=== PATIENT | male | born 1945 | race Caucasian/White ===

== ENCOUNTER → 2018-07-18 | Day surgery (SDC) | payer MEDICARE | LOC: ENDO/OP 09:43 | PROVIDERS: ATTEND Internal Medicine Gastroenterology | DX: K21.9 Gastro-esophageal reflux disease without esophagitis (principal); M19.90 Unspecified osteoarthritis, unspecified site; I48.91 Unspecified atrial fibrillation; I25.10 Atherosclerotic heart disease of native coronary artery without angina pectoris; M10.9 Gout, unspecified; I25.2 Old myocardial infarction; N18.9 Chronic kidney disease, unspecified; I50.9 Heart failure, unspecified; K50.90 Crohn's disease, unspecified, without complications; Z79.899 Other long term (current) drug therapy; Z87.891 Personal history of nicotine dependence; Z95.810 Presence of automatic (implantable) cardiac defibrillator | CPT/HCPCS: 91034 ==

== ENCOUNTER 2018-11-18 12:47 | Outpatient (CLI) | payer MEDICARE ==
--- NOTE | 2018-11-18 13:28 | CT ---
CT abdomen and pelvis noncontrast HISTORY: Hematuria. Neurogenic bladder. FINDINGS: At least a moderate amount right pleural fluid is partially visualized. Atelectasis at each lung base. Each renal collecting system, ureter, and urinary bladder are decompressed without stone evident. Lack of contrast limits evaluation for other abnormalities. Large cortical cysts arise from the cortex of each kidney. On each side, they measure 2 4.4 cm greatest diameter. Small amount of free fluid throughout the abdomen and pelvis with peritoneal dialysis catheter in place. Pr ominent calcification throughout the arterial structures. No evidence of bowel obstruction. Small dystrophic calcification is apparent the superior pole of the left renal cortex. Reactive appearing l ymph nodes scattered throughout the abdomen, measuring up to 1.9 cm length. IMPRESSION: No CT evidence of urinary tract obstruction or calcification. Findings of chronic peritoneal dialysis. Right pleural effusion, partially visualized. Atherosclerosis.
== END 2018-11-18 12:48 | disposition home or self-care (01) ==
LOC: BICCT 12:47
PROVIDERS: ATTEND Urology
DX: R31.29 Other microscopic hematuria (principal); N31.9 Neuromuscular dysfunction of bladder, unspecified; J90 Pleural effusion, not elsewhere classified; I70.90 Unspecified atherosclerosis
CPT/HCPCS: 74176

== ENCOUNTER 2019-09-15 13:59 | Emergency (ER) | payer MEDICARE ==
[2019-09-15 14:43] LABS: #Basophils 0.1 thou/uL (0.0-0.2); #Eosinphils 0.3 thou/uL (0.0-0.7); #Lymphocytes 0.9 thou/uL (1.20-3.40); #Monocytes 1.5 thou/uL (0.11-0.59); #Neutrophils 7.5 thou/uL (1.40-6.50); %Basophils 0.8 % (0.0-1.0); %Eosinophils 2.5 % (0.0-10.0); %Lymphocytes 8.9 % (21.0-51.0); %Monocytes 14.6 % (0.0-10.0); %Neutrophils 73.3 % (42.0-75.0); Hemoglobin 12.5 g/dL (14.0-18.0); Mean Corpuscular HGB CONC 33.8 g/dL (32.0-36.0); Mean Corpuscular Hemoglobin 38.2 pg (27.0-31.0); Mean Platelet Volume 7.9 fL (7.4-10.4); Platelet Count 224 thou/uL (130-400); RBC Distribution Width 14.4 % (11.5-14.5); Red Blood Cell (RBC) Count 3.26 mill/uL (4.70-6.10); White Blood Cell (WBC) Count 10.2 thou/uL (4.8-10.8)
--- NOTE | 2019-09-15 14:46 | RAD ---
PORTABLE CHEST 1 VIEW: DATE: 09/15/2019. TIME: 2:33 PM. HISTORY: Weakness. FINDINGS/IMPRESSION: There are changes of median sternotomy. The heart size is enlarged. The aorta is tortuous. A left- sided pacing device is present. There is a small right pleural effusion. No lobar consolidation, pn eumothorax, renée pulmonary edema, or left pleural effusion is seen. POS: OFF
[2019-09-15 14:54] LABS: ALT (SGPT) 21 U/L (8-55); AST (SGOT) 35 U/L (5-34); Albumin 4.1 g/dL (3.4-4.8); Alkaline Phosphatase 184 U/L (40-110); Anion Gap 21 mmol/L (10-20); BUN (Urea Nitrogen) 40 mg/dL (8.4-25.7); Bilirubin, Total 0.7 mg/dL (0.2-1.2); Calc. Creatinine Clearance 0 mL/min (70-130); Calcium 9.6 mg/dL (7.8-10.44); Carbon Dioxide 25 mmol/L (23-31); Chloride 96 mmol/L (98-107); Estimated GFR-MDRD 5; Globulin 2.5 g/dL (2.4-3.5); Glucose 115 mg/dL (83-110); Magnesium 2.3 mg/dL (1.6-2.6); Potassium 3.9 mmol/L (3.5-5.1); Protein, Total 6.6 g/dL (5.8-8.1); Sodium 138 mmol/L (136-145)
[2019-09-15 15:03] LABS: MDiff Complete? YES; Macrocytosis MODERATE=16-30 cells (100X) (0-5/hpf); Ovalocytes SLIGHT = 2-5 cells (100X) (0-1/hpf); Platelet Morphology Comment Appears Adequate; Polychromasia SLIGHT = 2-3 cells (100X) (0-2/hpf); Target Cells SLIGHT = 2-5 cells (100X) (0-1/hpf); Tear Drops SLIGHT = 2-5 cells (100X) (0-1/hpf)
[2019-09-15 15:15] LABS: CKMB 3.9 ng/mL (0-6.6)
== END 2019-09-15 16:19 | disposition home or self-care (01) ==
LOC: ERS 13:59
DX: I95.9 Hypotension, unspecified (principal); R53.1 Weakness; N18.4 Chronic kidney disease, stage 4 (severe); I50.9 Heart failure, unspecified; M10.9 Gout, unspecified; K58.9 Irritable bowel syndrome, unspecified; Z79.899 Other long term (current) drug therapy
CPT/HCPCS: 36415; 71045; 80053; 82553; 83735; 84484; 85025; 93005; 96360; 96361

== ENCOUNTER 2020-07-11 16:51 | Inpatient (IN) | payer MEDICARE ==
[2020-07-11 19:14] LABS: Hemoglobin 13.2 g/dL (14.0-18.0); Mean Corpuscular HGB CONC 31.3 g/dL (32.0-36.0); Mean Corpuscular Hemoglobin 33.3 pg (27.0-31.0); Mean Platelet Volume 8.1 fL (7.4-10.4); Platelet Count 208 thou/uL (130-400); RBC Distribution Width 14.4 % (11.5-14.5); Red Blood Cell (RBC) Count 3.98 mill/uL (4.70-6.10); White Blood Cell (WBC) Count 7.8 thou/uL (4.8-10.8)
[2020-07-11 19:31] LABS: ALT (SGPT) 19 U/L (8-55); AST (SGOT) 40 U/L (5-34); Albumin 3.5 g/dL (3.4-4.8); Alkaline Phosphatase 211 U/L (40-110); Anion Gap 20 mmol/L (10-20); BUN (Urea Nitrogen) 36 mg/dL (8.4-25.7); Bilirubin, Total 0.7 mg/dL (0.2-1.2); Calc. Creatinine Clearance 0 mL/min (70-130); Calcium 9.4 mg/dL (7.8-10.44); Carbon Dioxide 28 mmol/L (23-31); Chloride 89 mmol/L (98-107); Globulin 3.5 g/dL (2.4-3.5); Glucose 110 mg/dL (83-110); Potassium 3.4 mmol/L (3.5-5.1); Sodium 134 mmol/L (136-145)
[2020-07-11 19:38] LABS: Band 2 % (5-11); Lymphocytes 17 % (21-51); MDiff Complete? YES; Macrocytosis SLIGHT = 6-15 cells (100X) (0-5/hpf); Monocytes 17 % (0-10); Neutrophil 61 % (42-75); Platelet Morphology Comment Appears Adequate; Reactive Lymphocytes 2 % (0-10)
[2020-07-11 19:57] LABS: CKMB 2.3 ng/mL (0-6.6)
[2020-07-11] MEDS ORDERED: Aspirin Chewable 81 MG TAB ONE (20:01)
--- NOTE | 2020-07-11 20:19 | RAD ---
RADIOGRAPH CHEST 1 VIEW: DATE: 07/11/2020 TIME: 7:29 PM HISTORY: 75-year-old male with cough and generalized weakness COMPARISON: 09/15/2019 FINDINGS: Cardiomegaly. Signs of previous CABG. AICD with left-sided generator and multiple leads. No pneumothorax. Small right pleural effusion appears similar to prior study. Greater degree of haziness at right mid and lower lung zones now than previously. Mild haziness of contralateral left mid and lower lung zones. These are nonspecific, but could represent pulmonary interstitial edema or COVID-19 pneumonia. IMPRESSION: 1) cardiomegaly and small right pleural effusion, similar to prior study. 2) interstitial densities bilaterally, right greater than left. This could represent pulmonary inters titial edema of congestive heart failure or COVID-19 pneumonia.
[2020-07-11 21:47] LABS: Lactic Acid 1.7 mmol/L (0.5-2.2)
[2020-07-11] MEDS ORDERED: Cefepime 2 GM VIAL ONE (21:54)
[2020-07-11 22:42] LABS: SARS-CoV-2 NAA Rapid Test DETECTED (NotDetected)
[2020-07-12 00:08] LABS: Critical Call Chem Troponin I RESULT DECREASING; Troponin I 0.355 ng/mL (< 0.028)
[2020-07-12] MEDS ORDERED: Acetaminophen 650 MG Suppository PR PRN (00:09)
[2020-07-12] MEDS ORDERED: Ondansetron ODT 4 MG TAB PO PRN (00:09)
[2020-07-12] MEDS ORDERED: Acetaminophen 325 MG TAB PO PRN (00:09)
[2020-07-12] MEDS ORDERED: Ondansetron PF 4 MG/2 ML Vial IVP PRN (00:09)
[2020-07-12] MEDS ORDERED: Calcium Carbonate 500 MG ChewTAB PO PRN (00:09)
--- NOTE | 2020-07-12 00:14 | PDOC.HHP ---
Hospitalist HPI - History of Present Illness lethargy, weak History of Present Illness: Case of an 75y/o with a pmhx of chf, esrd on p/d, gout, atrial fibrillation, ibs, monoclonal gammopathy, hx of prostate ca s/p radiation and DM who comes to hospital due to general weakness and lethargy. patient is a very poor historian and does not understand why he is here. refers patient has been with generalize weakness and general malaise. states it started this morning and has gradually gotten worse. He denies chest pain, denies shortness of breath. He has no specific weakness, no loss of control of his arms or legs. His symptoms were low in severity have gradually gotten worse to the current state. No precipitating event or anything that caused this to his knowledge. at the ED patient was evaluated and found to be covid 19 positive and elevated troponin for which hospitalize was called for further evaluation and management. patient denies any fever but was febrile upon arrival Hospitalist ROS - Review of Systems All other systems reviewed; all pertinent +/- noted in HPI/Subj Hospitalist History - Past Surgical History Past Surgical History: reports: CABG - Family History Family History: reports: cardiac disorder - Social History Smoking Status: Never smoker Alcohol: reports: None Drugs: reports: none Living Situation: With Family - Exam General Appearance: ill appearing Eye: PERRL, anicteric sclera ENT: normocephalic atraumatic, no oropharyngeal lesions Neck: supple, symmetric, no JVD Heart: RRR, no murmur, no gallops, no rubs Respiratory: CTAB, no wheezes, no rales, no ronchi Gastrointestinal: soft, non-tender, non-distended Extremities: no cyanosis, no clubbing, 1+ LE edema Skin: normal turgor, no lesions, no rashes Neurological: cranial nerve grossly intact, normal sensation to touch Musculoskeletal: normal tone, no muscle wasting Psychiatric: normal affect, normal behavior, oriented to person Hospitalist Results - Labs Result Diagrams: 07/11/20 18:54 07/11/20 18:54 Lab results: WBC 7.8 thou/uL (4.8-10.8) 07/11/20 18:54 Hgb 13.2 g/dL (14.0-18.0) L 07/11/20 18:54 Hct 42.3 % (42.0-52.0) 07/11/20 18:54 MCV 106.0 fL (78.0-98.0) H 07/11/20 18:54 Plt Count 208 thou/uL (130-400) 07/11/20 18:54 Band Neuts % (Manual) 2 % (5-11) L 07/11/20 18:54 Sodium 134 mmol/L (136-145) L 07/11/20 18:54 Potassium 3.4 mmol/L (3.5-5.1) L 07/11/20 18:54 Chloride 89 mmol/L (98-107) L 07/11/20 18:54 Carbon Dioxide 28 mmol/L (23-31) 07/11/20 18:54 BUN 36 mg/dL (8.4-25.7) H 07/11/20 18:54 Creatinine 9.98 mg/dL (0.7-1.3) H 07/11/20 18:54 Glucose 110 mg/dL (83-110) 07/11/20 18:54 Lactic Acid 1.7 mmol/L (0.5-2.2) 07/11/20 21:07 Calcium 9.4 mg/dL (7.8-10.44) 07/11/20 18:54 Total Bilirubin 0.7 mg/dL (0.2-1.2) 07/11/20 18:54 AST 40 U/L (5-34) H 07/11/20 18:54 ALT 19 U/L (8-55) 07/11/20 18:54 Alkaline Phosphatase 211 U/L (40-110) H 07/11/20 18:54 CK-MB (CK-2) 2.3 ng/mL (0-6.6) 07/11/20 18:54 Troponin I 0.355 ng/mL (< 0.028) H* 07/11/20 23:10 B-Natriuretic Peptide 88.9 pg/mL (0-100) 07/11/20 18:54 Serum Total Protein 7.0 g/dL (5.8-8.1) 07/11/20 18:54 Albumin 3.5 g/dL (3.4-4.8) 07/11/20 18:54 Hospitalist H&P A/P - Problem (1) COVID-19 Code(s): U07.1 - COVID-19 Status: Acute (2) ESRD on peritoneal dialysis Code(s): N18.6 - END STAGE RENAL DISEASE; Z99.2 - DEPENDENCE ON RENAL DIALYSIS Status: Acute (3) CAD (coronary artery disease) Code(s): I25.10 - ATHSCL HEART DISEASE OF [place] CORONARY ARTERY W/O ANG PCTRS Status: Acute (4) History of prostate cancer Code(s): Z85.46 - PERSONAL HISTORY OF MALIGNANT NEOPLASM OF PROSTATE Status: Acute (5) Diabetes Code(s): E11.9 - TYPE 2 DIABETES MELLITUS WITHOUT COMPLICATIONS Status: Acute (6) Elevated troponin Code(s): R77.8 - OTHER SPECIFIED ABNORMALITIES OF PLASMA PROTEINS Status: Acute - Plan Plan: Case of an 75y/o male who presents to hospital and was diagnosed with covid 19 covid 19 - positive test - cxr consistent with covid 19 - will hold steroid for now since there is no complains of sob and adequate saturations - will start vit c, vit d and zinc - isolation precautions - elevated LA given iv bolus of boluses with improved levels - 02 supplementation if needed DM - acc+ss elevated troponin - likely secondary to renal failure and infection - will trend - telemetry monitoring esrd on PD - continue w P/D - nephrology consulted cad - continue home meds
[2020-07-12 00:21] VITALS: BMI 23.4
[2020-07-12 02:14] LABS: Critical Call Chem Troponin I RESULT DECREASING; Troponin I 0.325 ng/mL (< 0.028)
[2020-07-12 06:11] LABS: Band 2 % (5-11); Eosinophils 1 % (0-10); Hemoglobin 12.6 g/dL (14.0-18.0); Lymphocytes 5 % (21-51); MDiff Complete? YES; Mean Corpuscular HGB CONC 32.1 g/dL (32.0-36.0); Mean Corpuscular Hemoglobin 34.2 pg (27.0-31.0); Mean Platelet Volume 7.8 fL (7.4-10.4); Monocytes 17 % (0-10); Neutrophil 74 % (42-75); Platelet Count 194 thou/uL (130-400); Platelet Morphology Comment Appears Adequate; RBC Distribution Width 14.5 % (11.5-14.5); Reactive Lymphocytes 1 % (0-10); White Blood Cell (WBC) Count 5.8 thou/uL (4.8-10.8)
[2020-07-12 06:41] LABS: ALT (SGPT) 19 U/L (8-55); AST (SGOT) 53 U/L (5-34); Alkaline Phosphatase 173 U/L (40-110); Anion Gap 23 mmol/L (10-20); BUN (Urea Nitrogen) 43 mg/dL (8.4-25.7); Bilirubin, Total 0.7 mg/dL (0.2-1.2); Calc. Creatinine Clearance 7 mL/min (70-130); Calcium 8.7 mg/dL (7.8-10.44); Carbon Dioxide 19 mmol/L (23-31); Chloride 94 mmol/L (98-107); Globulin 3.6 g/dL (2.4-3.5); Glucose 66 mg/dL (83-110); Potassium 4.7 mmol/L (3.5-5.1); Protein, Total 6.6 g/dL (5.8-8.1); Sodium 131 mmol/L (136-145)
[2020-07-12] MEDS ORDERED: Albumin 25% 25 GM/100 ML BOT IVPB SCH (08:25)
[2020-07-12] MEDS: Enoxaparin Sodium 30 MG/0.3 ML SYRINGE SC SCH (08:57)
[2020-07-12] MEDS: Zinc Sulfate 220 MG CAP PO SCH (08:57)
[2020-07-12] MEDS: Ascorbic Acid 500 mg Chewable Tablet PO SCH (08:57)
[2020-07-12] MEDS: Cholecalciferol (Vitamin D3) 400 UNITS TAB PO SCH (08:57)
[2020-07-12] MEDS ORDERED: Midodrine HCl 5 MG TAB PO SCH ×2 (09:00→15:00)
--- NOTE | 2020-07-12 09:15 | CON ---
DATE OF CONSULTATION: 07/12/2020 HISTORY OF PRESENT ILLNESS: Mr. Adan is a 75-year-old white male with ESRD, currently on CCPD regimen. He was initially brought to the OR by his due to the fact that the patient has been feeling weaker in the last few days and has not been eating. He also was complaining of some cough, but denies any overt fever. During the initial evaluation in the ER, he was noted to be COVID-19 positive. He also had chest x-ray findings suggestive of pneumonia. We were now consulted for management of his ESRD and maintenance peritoneal dialysis. REVIEW OF SYSTEMS: The patient denies any chest pain or shortness of breath. He does complain of cough, but no fever or chills. Decreased appetite, decreased energy level. No dysuria. No urinary frequency. No urinary frequency. No hematochezia. No melena. No hematemesis. No headache. No diplopia. No abdominal pain. HOME MEDICATIONS: Included: 1. Allopurinol 150 mg tablet daily. 2. Midodrine 2.5 mg t.i.d. 3. Velphoro 500 mg one tablet t.i.d. with meals. 4. Lyrica 25 mg daily. 5. Protonix 40 mg tablet once a day. 6. Atorvastatin 40 mg tablet once a day. 7. Domperidone powder 10 mg q.i.d. 8. Ambien 5 mg at bedtime. 9. Glipizide 5 mg once a day. 10. Flexeril 10 mg p.r.n. 11. Coenzyme Q 100 mg once a day. 12. Tracee-Luis one tablet once a day. 13. Vitamin E 400 international units q. day. Current hospital medications have included: 1. Lovenox 30 mg subcu daily. 2. Renvela 800 mg two tablets t.i.d. with meals. 3. Zinc sulfate 220 mg once a day. PAST MEDICAL HISTORY: Includes the followin. Coronary artery disease. 2. Status post CHF. 3. ESRD, currently on peritoneal dialysis. 4. Monoclonal gammopathy. 5. Prostate cancer in remission. 6. 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 7. History of insomnia. 8. Type 2 diabetes mellitus. 9. History of gout. 10. History of dysfunctional bladder. 11. DJD. 12. Atrial fibrillation. PAST SURGICAL HISTORY: 1. Status post bilateral rotator cuff repair. 2. Status post colonoscopy. 3. Status post heart ablation. 4. Status post cardiac cath. 5. Status post CABG. 6. Status post cystoscopy. 7. Status post PD catheter placement. 8. Status post left heart appendage removal. 9. Status post upper GI endoscopy with digital capsule placement. 10. Status post cataract surgery. SOCIAL HISTORY: The patient is , lives in [place], three children. 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 Education, high school. Currently, no smoking, no IV drug use, no alcohol. ALLERGIES: GABAPENTIN?, REGLAN. TRAUMA: None. IMMUNIZATIONS: Up to date. HOSPITALIZATIONS: Please see past medical history. FAMILY HISTORY: No family history of ESRD. PHYSICAL EXAMINATION: VITAL SIGNS: Blood pressure is 81/50 with a heart rate of 94, respiratory rate 20, temperature is 98.9, O2 saturation 98%. GENERAL: The patient is awake, sitting comfortable not in overt distress. He is slightly confused. SKIN: Adequate turgor. HEENT: Pinkish conjunctivae. Anicteric sclerae. No neck mass. No carotid bruits. No JVD. CHEST: No deformities. LUNGS: Decreased breath sounds. No wheezing. No crackles. HEART: Normal sinus rhythm. No murmur. No gallops. No rubs. ABDOMEN: Globular, soft, nontender. No masses. EXTREMITIES: No edema. No deformities. NEUROLOGICAL: Moving all extremities. No tremors. No asterixis. No ataxia. LABORATORY DATA: Laboratories of July 12, 2020: White count 5.8, hemoglobin 12.6. Sodium 131, potassium 4.7, chloride 94, carbon dioxide 19, BUN 43, creatinine 9.96, glucose 66, calcium 8.7, AST 53, ALT 19, ferritin 3802. Troponin I 0.325. LDH is 229. Albumin 3.0. ASSESSMENT AND PLAN: 1. Hypotension. We will restart midodrine 2.5 mg p.o. t.i.d. Consider giving albumin infusion due to the low blood pressure as well as low albumin. We will give 25 g IV q.6 for 4 doses. 2. End-stage renal disease, stable. We will continue current CCPD regimen. Due to the decreased blood pressure, we will use a 1.5% peritoneal dialysis solution. We will continue current fill volume and treatment time based on the outpatient dialysis unit. 3. COVID-19 pneumonia, continuing supportive care. Overall prognosis remains guarded. Job ID: [id number]
[2020-07-12] MEDS: Sevelamer Carbonate 800 MG TAB PO SCH ×2 (10:44→18:18)
[2020-07-12] MEDS ORDERED: Zolpidem Tartrate 5 MG TAB PO PRN (14:33)
[2020-07-12] MEDS ORDERED: Cyclobenzaprine 10 MG TAB PO PRN (14:33)
[2020-07-12] MEDS ORDERED: Sucroferric Oxyhydroxide [Velphoro] 500 MG Tab.Chew PO SCH (17:00)
[2020-07-12 17:23] LABS: Hemoglobin 12.2 g/dL (14.0-18.0)
[2020-07-12] MEDS: Midodrine HCl 5 MG TAB PO SCH ×2 (18:18→20:01)
--- NOTE | 2020-07-12 19:28 | CON ---
DATE OF CONSULTATION: REASON FOR CONSULTATION: Family request. HISTORY OF PRESENT ILLNESS: Mr. Adan is a 75-year-old gentleman, who is a patient of Dr. Lucy Wasserman. He recently presented to the hospital with weakness and fatigue. He has had a low-grade fever. He has been diagnosed with COVID pneumonia. His BNP been within normal limits. Most of the history is obtained from his . Due to COVID, the patient was not seen. CURRENT MEDICATIONS: Include; 1. Ambien. 2. Glipizide. 3. Cyclobenzaprine. 4. Pantoprazole. 5. L-arginine. 6. Probiotic. 7. Allopurinol. 8. Mag oxide. 9. CoQ10. 10. Velphoro. 11. Vitamin E. 12. Tracee-Luis. 13. Midodrine. 14. Atorvastatin. PAST MEDICAL HISTORY: End-stage renal disease, previous [place], Crohn disease, varicose veins, atrial fibrillation, prostate cancer, osteoarthritis. SURGICAL HISTORY: AICD placement. REVIEW OF SYSTEMS: A 10-point review of systems is reviewed as above, otherwise negative. PHYSICAL EXAMINATION: VITAL SIGNS: Blood pressure temperature 98.8. Physical exam deferred due to COVID positive. PERTINENT LABS: BNP of 88. Hemoglobin 12.2. Creatinine 9.96. Peak troponin 0.3. IMPRESSION: 1. COVID positive pneumonia. 2. Chronic systolic heart failure. 3. Status post ICD. RECOMMENDATIONS: Based on chest x-ray findings in addition to BNP, his symptoms are likely related to COVID pneumonia and not related to acute systolic heart failure. Discussed this with the . Appropriate medical therapy for COVID pneumonia will be per primary team. At this point, from a CV and renal standpoint, would continue supportive care. Based on his comorbidities, unfortunately his prognosis is guarded. I did discuss this with his . Otherwise, from my standpoint, I have no further recommendations. We will follow peripherally. Job ID: [id number]
[2020-07-12] MEDS: Pregabalin 25 MG CAP PO SCH (20:00)
[2020-07-12] MEDS: Atorvastatin Calcium 40 MG TAB PO SCH (20:01)
[2020-07-13] MEDS: Guaifenesin DM 100-10/5 ML UDCUP PO PRN ×2 (04:05→21:30)
[2020-07-13] MEDS: Midodrine HCl 5 MG TAB PO SCH ×3 (05:39→21:25)
[2020-07-13 05:51] LABS: #Lymphocytes 0.5 thou/uL (1.20-3.40); #Neutrophils 5.3 thou/uL (1.40-6.50); %Basophils 0.2 % (0.0-1.0); %Eosinophils 0.5 % (0.0-10.0); %Lymphocytes 7.2 % (21.0-51.0); %Monocytes 14.3 % (0.0-10.0); %Neutrophils 77.7 % (42.0-75.0); Hemoglobin 11.8 g/dL (14.0-18.0); Mean Corpuscular HGB CONC 32.6 g/dL (32.0-36.0); Mean Corpuscular Hemoglobin 34.5 pg (27.0-31.0); Mean Platelet Volume 7.9 fL (7.4-10.4); Platelet Count 192 thou/uL (130-400); RBC Distribution Width 14.5 % (11.5-14.5); Red Blood Cell (RBC) Count 3.42 mill/uL (4.70-6.10); White Blood Cell (WBC) Count 6.8 thou/uL (4.8-10.8)
[2020-07-13 06:14] LABS: Anion Gap 22 mmol/L (10-20); BUN (Urea Nitrogen) 48 mg/dL (8.4-25.7); Calc. Creatinine Clearance 7 mL/min (70-130); Calcium 8.7 mg/dL (7.8-10.44); Carbon Dioxide 23 mmol/L (23-31); Chloride 90 mmol/L (98-107); Glucose 84 mg/dL (83-110); Potassium 3.4 mmol/L (3.5-5.1); Sodium 132 mmol/L (136-145)
[2020-07-13] MEDS ORDERED: Sodium Chloride 0.9% 500 ML IV SCH (07:00)
--- NOTE | 2020-07-13 09:14 | PRG ---
DATE OF SERVICE: 07/13/2020 SUBJECTIVE: Mr. Adan is a 75-year-old white male with ESRD and was admitted for generalized weakness. He was diagnosed to have a COVID-19 pneumonia. We are following him up for management of his ESRD. He underwent peritoneal dialysis last night. We used 1.5% PD solution due to the low blood pressure. Ultrafiltration is about 400 mL in the last dialysis session. He is feeling better. He denies any chest pain or shortness of breath. He has also been evaluated by Cardiology per request by the family. No cardiology intervention is noted at the present time. OBJECTIVE: VITAL SIGNS: Blood pressure is noted at 85/53, ranging to as high as 101/60, heart rate 103, respiratory rate 24, temperature 98.8, and O2 saturation 94%. GENERAL: The patient is awake, alert, supine, comfortable, not in overt distress. SKIN: Adequate turgor. HEENT: He has pinkish conjunctivae. Anicteric sclerae. NECK: No neck mass. No carotid bruits. No JVD. CHEST: No deformities. LUNGS: Clear breath sounds. HEART: Normal sinus rhythm. No murmur. No gallops. No rubs. ABDOMEN: Globular, soft, and nontender. No masses. EXTREMITIES: No edema. No deformities. PD catheter is noted in the abdomen. MEDICATIONS: July 13, 2020, reviewed. LABORATORY DATA: Laboratories of July 13, 2020; white count 6.8, hemoglobin 11.8, sodium 132, potassium 3.4, chloride 90, carbon dioxide 23, BUN 48, creatinine 10.21, glucose 84, calcium 8.7. Procalcitonin 2.1. July 12, 2020, albumin 3.0. ASSESSMENT AND PLAN: 1. Chronic hypotension-clinically asymptomatic. Continuing midodrine with the patient. We will give another day of albumin infusion 25 g IV q.6 x4 doses. 2. End-stage renal disease, stable. We will continue current CCPD regimen. We will continue current 1.5% PD solution. Ultrafiltration will be done as tolerated by the patient. 3. COVID-19 pneumonia. Continue supportive care. Overall, the patient is clinically improving-he is feeling better. He denies any chest pain or shortness of breath. 4. Recheck CBC, basic met in a.m. Job ID: [id number] [facility]
[2020-07-13] MEDS: Allopurinol 300 MG TAB PO SCH (10:03)
[2020-07-13] MEDS: Sevelamer Carbonate 800 MG TAB PO SCH ×3 (10:03→18:00)
[2020-07-13] MEDS: Cholecalciferol (Vitamin D3) 400 UNITS TAB PO SCH (10:05)
[2020-07-13] MEDS: Enoxaparin Sodium 30 MG/0.3 ML SYRINGE SC SCH (10:05)
[2020-07-13] MEDS: Magnesium Oxide 400 MG TAB PO SCH (10:05)
[2020-07-13] MEDS: Ascorbic Acid 500 mg Chewable Tablet PO SCH (10:05)
[2020-07-13] MEDS: Zinc Sulfate 220 MG CAP PO SCH (10:06)
[2020-07-13] MEDS: Albumin 25% 25 GM/100 ML BOT IVPB SCH ×3 (10:08→21:27)
--- NOTE | 2020-07-13 15:34 | PDOC.HOSPP ---
- Subjective Encounter Date: 07/13/20 Encounter Time: 08:30 Subjective: Patient seen for follow-up regarding COVID-19 infection. He is unable to provide history, could not complete review of systems. - Objective Vital Signs & Weight: Vital Signs (12 hours) Temp Pulse Resp BP BP BP Pulse Ox 07/13/20 13:45 98.5 F 90 22 H 93/59 L 100 07/13/20 09:40 98.4 F 97 20 89/50 L 96 07/13/20 03:39 98.8 F 103 H 24 H 85/53 L 94 L Weight Weight 166 lb 8 oz I&O: 07/12/20 07/13/20 07/14/20 06:59 06:59 06:59 Intake Total 240 530 350 Balance 240 530 350 Result Diagrams: 07/13/20 05:04 07/13/20 05:04 Additional Labs: Labs and MAR reviewed by me EKG Reviewed by me: Yes (V paced rhythm on telemetry) Hospitalist ROS - Review of Systems ROS unobtainable: due to mental status - Medication Medications: Active Medications Generic Name Dose Route Start Last Admin Trade Name Freq PRN Reason Stop Dose Admin Albumin Human 25 gm 07/13/20 10:00 07/13/20 10:08 Albumin 25% 25 Gm/100 Ml Bot IVPB 07/14/20 04:01 25 gm Q6H ADAM Administration Allopurinol 150 mg 07/13/20 09:00 07/13/20 10:03 Allopurinol 300 Mg Tab PO 150 mg DAILY ADAM Administration Ascorbic Acid 1,000 mg 07/12/20 09:00 07/13/20 10:05 Ascorbic Acid 500 Mg Chewable Tablet PO 1,000 mg DAILY ADAM Administration Atorvastatin Calcium 40 mg 07/12/20 21:00 07/12/20 20:01 Atorvastatin Calcium 40 Mg Tab PO 40 mg HS ADAM Administration Cholecalciferol 400 units 07/12/20 09:00 07/13/20 10:05 Cholecalciferol (Vitamin D3) 400 Units Tab PO 400 units DAILY ADAM Administration Enoxaparin Sodium 30 mg 07/12/20 09:00 07/13/20 10:05 Enoxaparin Sodium 30 Mg/0.3 Ml Syringe SC 30 mg 0900 ADAM Administration Glipizide 5 mg 07/13/20 07:30 07/13/20 10:03 Glipizide Xl 5 Mg Tablet PO 5 mg DAILY-AC ADAM Administration Guaifenesin/Dextromethorphan 15 ml 07/12/20 00:09 07/13/20 04:05 Guaifenesin Dm 100-10/5 Ml Udcup PO 15 ml Q4H PRN Administration Cough Magnesium Oxide 400 mg 07/13/20 09:00 07/13/20 10:05 Magnesium Oxide 400 Mg Tab PO 400 mg DAILY ADAM Administration Midodrine 10 mg 07/13/20 06:00 07/13/20 05:39 Midodrine Hcl 5 Mg Tab PO 10 mg 0600 ADAM Administration Midodrine 5 mg 07/12/20 17:00 07/12/20 20:01 Midodrine Hcl 5 Mg Tab PO 5 mg 1700,2100 ADAM Administration Pantoprazole Sodium 40 mg 07/12/20 21:00 07/13/20 10:06 Pantoprazole 40 Mg Tab PO 40 mg BID ADAM Administration Pregabalin 25 mg 07/12/20 21:00 07/12/20 20:00 Pregabalin 25 Mg Cap PO 25 mg HS ADAM Administration Sevelamer Carbonate 1,600 mg 07/12/20 12:00 07/13/20 14:36 Sevelamer Carbonate 800 Mg Tab PO 1,600 mg TID-WM ADAM Administration Sodium Chloride 10 ml 07/13/20 09:00 07/13/20 10:06 Flush - Normal Saline 10 Ml Syringe IVF 10 ml Q12HR ADAM Administration Zinc Sulfate 220 mg 07/12/20 09:00 07/13/20 10:06 Zinc Sulfate 220 Mg Cap PO 220 mg DAILY ADAM Administration - Exam General Appearance: awake alert Eye: anicteric sclera ENT: moist mucosa Neck: supple Respiratory: rhonchi Gastrointestinal: soft Skin: no rashes Psychiatric: normal affect, normal behavior Hosp A/P - Plan -Assessment (1) COVID-19 infection Status: Acute (2) CAD (coronary artery disease) Code(s): I25.10 - ATHSCL HEART DISEASE OF [place] CORONARY ARTERY W/O ANG PCTRS Status: Chronic (3) ESRD on peritoneal dialysis Code(s): N18.6 - END STAGE RENAL DISEASE; Z99.2 - DEPENDENCE ON RENAL DIALYSIS Status: Chronic (4) History of prostate cancer Code(s): Z85.46 - PERSONAL HISTORY OF MALIGNANT NEOPLASM OF PROSTATE Status: Chronic (5) Diabetes Code(s): E11.9 - TYPE 2 DIABETES MELLITUS WITHOUT COMPLICATIONS Status: Chronic (6) Elevated troponin Code(s): R77.8 - OTHER SPECIFIED ABNORMALITIES OF PLASMA PROTEINS Status: [place] - Plan Patient is not hypoxic, no indication for steroids at this time. Continue vitamin C and zinc. Patient is not a candidate for remdesivir secondary to renal insufficiency. Nephrology service following for maintenance peritoneal dialysis. Patient seen by cardiology service for suspected volume overload, they feel that his clinical presentation is secondary to COVID-19 pneumonia. Start Accu-Cheks and insulin sliding scale. Blood pressures on the lower side. Patient is on midodrine. Likely home in 24 to 48 hours.
[2020-07-13] MEDS: Pregabalin 25 MG CAP PO SCH (21:00)
[2020-07-13] MEDS: Atorvastatin Calcium 40 MG TAB PO SCH (21:25)
[2020-07-14] MEDS: Midodrine HCl 5 MG TAB PO SCH ×4 (00:02→21:06)
[2020-07-14] MEDS: Albumin 25% 25 GM/100 ML BOT IVPB SCH (04:30)
[2020-07-14 06:35] LABS: Mean Corpuscular HGB CONC 31.3 g/dL (32.0-36.0); Mean Corpuscular Hemoglobin 32.7 pg (27.0-31.0); Mean Platelet Volume 8.1 fL (7.4-10.4); Platelet Count 205 thou/uL (130-400); RBC Distribution Width 14.5 % (11.5-14.5); Red Blood Cell (RBC) Count 3.35 mill/uL (4.70-6.10); White Blood Cell (WBC) Count 7.1 thou/uL (4.8-10.8)
[2020-07-14 06:45] LABS: Anion Gap 22 mmol/L (10-20); BUN (Urea Nitrogen) 51 mg/dL (8.4-25.7); Calc. Creatinine Clearance 6 mL/min (70-130); Calcium 8.6 mg/dL (7.8-10.44); Carbon Dioxide 23 mmol/L (23-31); Chloride 90 mmol/L (98-107); Potassium 3.2 mmol/L (3.5-5.1); Sodium 132 mmol/L (136-145)
[2020-07-14 06:49] LABS: Glucose 41 mg/dL (83-110)
[2020-07-14] MEDS ORDERED: Dextrose 50% Abboject 50 ML SYRINGE ONE (06:51)
[2020-07-14] MEDS: HumaLOG 300 UNITS/3 ML VIAL SC SCH ×3 (07:00→22:33)
[2020-07-14 07:36] LABS: Band 7 % (5-11); Eosinophils 1 % (0-10); Lymphocytes 5 % (21-51); MDiff Complete? YES; Monocytes 11 % (0-10); Neutrophil 76 % (42-75); Platelet Morphology Comment Appears Adequate; Polychromasia SLIGHT = 2-3 cells (100X) (0-2/hpf)
[2020-07-14] MEDS: Sevelamer Carbonate 800 MG TAB PO SCH ×3 (08:41→17:42)
[2020-07-14] MEDS: Allopurinol 300 MG TAB PO SCH (08:42)
[2020-07-14] MEDS: Magnesium Oxide 400 MG TAB PO SCH (08:42)
[2020-07-14] MEDS: Ascorbic Acid 500 mg Chewable Tablet PO SCH (08:42)
[2020-07-14] MEDS: Cholecalciferol (Vitamin D3) 400 UNITS TAB PO SCH (08:42)
[2020-07-14] MEDS: Enoxaparin Sodium 30 MG/0.3 ML SYRINGE SC SCH (08:42)
[2020-07-14] MEDS: Zinc Sulfate 220 MG CAP PO SCH (08:43)
[2020-07-14] MEDS ORDERED: Potassium Chloride 20 MEQ TAB PO SCH (09:00)
--- NOTE | 2020-07-14 09:35 | PRG ---
DATE OF SERVICE: 07/14/2020 SUBJECTIVE: Mr. Adan is a 75-year-old white male with ESRD, currently on peritoneal dialysis and admitted for COVID-19 pneumonia. This morning, he is feeling better. He is oxygenating adequately. He still has chronic hypotension, but he is relatively asymptomatic. Adjustment of his midodrine has been done. He also received some albumin infusion yesterday. His appetite is still somewhat decreased. The patient voices no new complaints. No chest pain or shortness of breath. OBJECTIVE: VITAL SIGNS: Blood pressure 81/51, heart rate 74, respiratory rate 20, temperature 98.3, O2 saturation 90% to 93%. GENERAL: The patient is awake, alert, sitting comfortable, not in distress. SKIN: Adequate turgor. HEENT: Pinkish conjunctivae. Anicteric sclerae. NECK: No neck mass. No carotid bruits. No JVD. CHEST: No deformities. LUNGS: Clear breath sounds. No wheezing. No crackles. HEART: Normal sinus rhythm. No murmurs, gallops, or rubs. ABDOMEN: Globular, soft, nontender. No masses. Positive for PD catheter. EXTREMITIES: No edema. No deformities. MEDICATIONS: July 14, 2020, was reviewed. LABORATORY DATA: July 14, 2020; white count 7.1, hemoglobin 11, sodium 132, potassium 3.2, chloride 90, carbon dioxide 23, BUN 51, creatinine 10.64, glucose 102, calcium 8.6. ASSESSMENT AND PLAN: 1. Mild hypokalemia. KCl 40 mEq one tablet once a day x 1 dose was given. 2. End-stage renal disease, stable. Continue current CCPD regimen. Due to the low blood pressure, we are currently using 1.5% PD solution. Please note, patient is not in volume overload. There is no indication to change the current PD regimen. 3. COVID-19 pneumonia, stable. Continue supportive care. The plan is for the patient discharged today. If he still here by tomorrow, we will recheck CBC basement in a.m. Job ID: [id number]
[2020-07-14] MEDS: Guaifenesin DM 100-10/5 ML UDCUP PO PRN ×3 (10:40→21:12)
--- NOTE | 2020-07-14 16:26 | PDOC.HOSPP ---
- Subjective Encounter Date: 07/14/20 Encounter Time: 10:30 Subjective: Patient up in bed no complaints. He desats on minimal movement - Objective Vital Signs & Weight: Vital Signs (12 hours) Temp Pulse Resp BP Pulse Ox 07/14/20 11:50 99.8 F H 99 22 H 103/67 94 L 07/14/20 11:10 98.3 F 89 20 99 07/14/20 08:00 96 07/14/20 07:00 98.0 F 93 20 90/55 L 96 07/14/20 05:30 90 L Weight Weight 166 lb 8 oz I&O: 07/13/20 07/14/20 07/15/20 06:59 06:59 06:59 Intake Total 530 450 815 Output Total 91 Balance 530 450 724 Result Diagrams: 07/14/20 05:52 07/14/20 05:52 Additional Labs: Accuchecks 07/14/20 07/14/20 12:24 07:19 POC Glucose 74 102 H Hospitalist ROS - Review of Systems Respiratory: denies: cough, dry, shortness of breath, hemoptysis, SOB with excertion, pleuritic pain, sputum, wheezing, other Cardiovascular: denies: chest pain, palpitations, orthopnea, paroxysmal noc. dyspnea, edema, light headedness, other Gastrointestinal: denies: nausea, vomiting, abdominal pain, diarrhea, constipation, melena, hematochezia, other - Medication Medications: Active Medications Generic Name Dose Route Start Last Admin Trade Name Taqueriaq PRN Reason Stop Dose Admin Allopurinol 150 mg 07/13/20 09:00 07/14/20 08:42 Allopurinol 300 Mg Tab PO 150 mg DAILY ADAM Administration Ascorbic Acid 1,000 mg 07/12/20 09:00 07/14/20 08:42 Ascorbic Acid 500 Mg Chewable Tablet PO 1,000 mg DAILY ADAM Administration Atorvastatin Calcium 40 mg 07/12/20 21:00 07/13/20 21:25 Atorvastatin Calcium 40 Mg Tab PO 40 mg HS ADAM Administration Cholecalciferol 400 units 07/12/20 09:00 07/14/20 08:42 Cholecalciferol (Vitamin D3) 400 Units Tab PO 400 units DAILY ADAM Administration Enoxaparin Sodium 30 mg 07/12/20 09:00 07/14/20 08:42 Enoxaparin Sodium 30 Mg/0.3 Ml Syringe SC 30 mg 0900 ADAM Administration Guaifenesin/Dextromethorphan 15 ml 07/12/20 00:09 07/14/20 14:06 Guaifenesin Dm 100-10/5 Ml Udcup PO 15 ml Q4H PRN Administration Cough Insulin Human Lispro 0 units 07/14/20 07:30 07/14/20 11:10 Humalog 300 Units/3 Ml Vial SC Not Given ACHS [facility] Protocol Magnesium Oxide 400 mg 07/13/20 09:00 07/14/20 08:42 Magnesium Oxide 400 Mg Tab PO 400 mg DAILY ADAM Administration Midodrine 10 mg 07/13/20 06:00 07/14/20 04:30 Midodrine Hcl 5 Mg Tab PO 10 mg 0600 ADAM Administration Midodrine 10 mg 07/13/20 21:00 07/13/20 21:25 Midodrine Hcl 5 Mg Tab PO 10 mg 1700,2100 ADAM Administration Pantoprazole Sodium 40 mg 07/12/20 21:00 07/14/20 08:42 Pantoprazole 40 Mg Tab PO 40 mg BID ADAM Administration Pregabalin 25 mg 07/12/20 21:00 07/13/20 21:00 Pregabalin 25 Mg Cap PO Not Given HS ADAM Sevelamer Carbonate 1,600 mg 07/12/20 12:00 07/14/20 13:31 Sevelamer Carbonate 800 Mg Tab PO 1,600 mg TID-WM ADAM Administration Sodium Chloride 10 ml 07/13/20 09:00 07/14/20 10:40 Flush - Normal Saline 10 Ml Syringe IVF 10 ml Q12HR ADAM Administration Zinc Sulfate 220 mg 07/12/20 09:00 07/14/20 08:43 Zinc Sulfate 220 Mg Cap PO 220 mg DAILY ADAM Administration - Exam Heart: negative: RRR, no murmur, no gallops, no rubs, normal peripheral pulses, irregular, diminshed peripheral pulses, murmur present, II/IV, III/IV Respiratory: negative: CTAB, no wheezes, no rales, no ronchi, normal chest expansion, no tachypnea, normal percussion, rales, rhonchi, tachypneic, wheezes Gastrointestinal: negative: soft, non-tender, non-distended, normal bowel sounds, no palpable masses, no hepatomegaly, no splenomegaly, no bruit, no guarding, no rigidity, tender to palpation, distended, diminished bowl sounds, voluntary guarding Gastrointestinal - other findings: pd cath intact Extremities: 1+ LE edema Hosp A/P - Plan (1) COVID-19 infection Status: Acute (2) CAD (coronary artery disease) Code(s): I25.10 - ATHSCL HEART DISEASE OF [place] CORONARY ARTERY W/O ANG PCTRS Status: Chronic (3) ESRD on peritoneal dialysis Code(s): N18.6 - END STAGE RENAL DISEASE; Z99.2 - DEPENDENCE ON RENAL DIALYSIS Status: Chronic (4) History of prostate cancer Code(s): Z85.46 - PERSONAL HISTORY OF MALIGNANT NEOPLASM OF PROSTATE Status: Chronic (5) Diabetes Code(s): E11.9 - TYPE 2 DIABETES MELLITUS WITHOUT COMPLICATIONS Status: Chronic (6) Elevated troponin Code(s): R77.8 - OTHER SPECIFIED ABNORMALITIES OF PLASMA PROTEINS Status: Chronic Acute hypoxic respiratory failure - Plan Patient is not hypoxic, no indication for steroids at this time. Continue vitamin C and zinc. Patient is not a candidate for remdesivir secondary to renal insufficiency. Nephrology service following for maintenance peritoneal dialysis. Patient seen by cardiology service for suspected volume overload, they feel that his clinical presentation is secondary to COVID-19 pneumonia. Start Accu-Cheks and insulin sliding scale. Blood pressures on the lower side. Patient is on midodrine. Likely home in 24 to 48 hours. 07/14 patient started dropping his blood sugars in the low 40s to 50s. We will hold all antihyperglycemics. Patient desats on minimal movement. He will probably need oxygen on discharge. Blood pressure is low but stable.
[2020-07-14] MEDS: Atorvastatin Calcium 40 MG TAB PO SCH (21:05)
[2020-07-14] MEDS: Pregabalin 25 MG CAP PO SCH (21:06)
[2020-07-15 04:51] LABS: #Lymphocytes 0.8 thou/uL (1.20-3.40); #Monocytes 0.9 thou/uL (0.11-0.59); #Neutrophils 7.2 thou/uL (1.40-6.50); %Basophils 0.1 % (0.0-1.0); %Eosinophils 0.1 % (0.0-10.0); %Lymphocytes 8.4 % (21.0-51.0); %Monocytes 10.2 % (0.0-10.0); %Neutrophils 81.1 % (42.0-75.0); Hemoglobin 11.8 g/dL (14.0-18.0); Mean Corpuscular HGB CONC 31.9 g/dL (32.0-36.0); Mean Corpuscular Hemoglobin 33.5 pg (27.0-31.0); Mean Platelet Volume 7.9 fL (7.4-10.4); Platelet Count 243 thou/uL (130-400); RBC Distribution Width 14.4 % (11.5-14.5); Red Blood Cell (RBC) Count 3.51 mill/uL (4.70-6.10); White Blood Cell (WBC) Count 8.9 thou/uL (4.8-10.8)
[2020-07-15 05:11] LABS: Anion Gap 25 mmol/L (10-20); BUN (Urea Nitrogen) 59 mg/dL (8.4-25.7); CRP (Inflammatory) 16.34 mg/dL (= or < 0.5); Calc. Creatinine Clearance 7 mL/min (70-130); Calcium 9.1 mg/dL (7.8-10.44); Carbon Dioxide 22 mmol/L (23-31); Chloride 89 mmol/L (98-107); Glucose 124 mg/dL (83-110); Potassium 3.8 mmol/L (3.5-5.1); Sodium 132 mmol/L (136-145)
[2020-07-15] MEDS: Midodrine HCl 5 MG TAB PO SCH ×2 (05:58→17:22)
[2020-07-15] MEDS: Guaifenesin DM 100-10/5 ML UDCUP PO PRN ×2 (06:05→10:30)
[2020-07-15 06:30] LABS: Hemoglobin A1c 6.3 % (4.0-6.0)
--- NOTE | 2020-07-15 08:53 | PRG ---
DATE OF SERVICE: 07/15/2020 DISCUSSION: Mr. Adan is a 75-year-old white male with ESRD, who was admitted for COVID-19 pneumonia. We are following him up for management of his ESRD and maintenance CCPD. Due to the low blood pressure, we are unable to remove much fluid with him. He is currently on the 1.5% PD solution. Blood pressure is slightly improved today. He is currently on midodrine. This morning, he denies any chest pain or shortness of breath. He still has decreased appetite. He tells me that he is feeling better. OBJECTIVE: VITAL SIGNS: Blood pressure is 102/59, heart rate 96, respiratory rate 24, temperature 97.7, and O2 saturation 95%. GENERAL: Noted to be awake, supine, comfortable, not in overt distress. SKIN: Adequate turgor. HEENT: He has pinkish conjunctivae. Anicteric sclerae. NECK: No neck mass. No carotid bruits. No JVD. CHEST: No deformities. LUNGS: Clear breath sounds. No wheezing. No crackles. HEART: Normal sinus rhythm. No murmur, no gallops, and no rubs. ABDOMEN: Globular, soft, and nontender. No masses. Please note he has a PD catheter in the belly. EXTREMITIES: No edema. No deformities. MEDICATIONS: Review of medications was done on 07/15/2020. LABORATORY DATA: On 07/15/2020: White count 8.9, hemoglobin 11.8. Sodium 132, potassium 3.8, chloride 89, carbon dioxide 22, BUN 59, creatinine 10, glucose 124, and calcium 9.1. C-reactive protein 16. ASSESSMENT AND PLAN: 1. COVID-19 pneumonia, stable. Continuing supportive care. His pulmonary status has not worsened, but remained stable. 2. End-stage renal disease, stable. We will continue current CCPD regimen of using 1.5% PD solution. Once the patient's blood pressure is much improved, we can shift him to a 1.5 alternating with 2.5% PD solution. 3. Chronic hypotension, currently on midodrine support. Overall prognosis remains guarded. Job ID: [id number]
[2020-07-15] MEDS: HumaLOG 300 UNITS/3 ML VIAL SC SCH ×3 (09:29→16:29)
[2020-07-15] MEDS: Ascorbic Acid 500 mg Chewable Tablet PO SCH (09:29)
[2020-07-15] MEDS: Allopurinol 300 MG TAB PO SCH (09:30)
[2020-07-15] MEDS: Enoxaparin Sodium 30 MG/0.3 ML SYRINGE SC SCH (09:33)
[2020-07-15] MEDS: Cholecalciferol (Vitamin D3) 400 UNITS TAB PO SCH (09:33)
[2020-07-15] MEDS: Magnesium Oxide 400 MG TAB PO SCH (09:33)
[2020-07-15] MEDS: Zinc Sulfate 220 MG CAP PO SCH (09:34)
[2020-07-15] MEDS: Sevelamer Carbonate 800 MG TAB PO SCH ×3 (09:39→17:22)
--- NOTE | 2020-07-15 14:36 | PDOC.DS.DS ---
Provider - Provider Date of Admission: 07/12/20 16:22 Date of Discharge: 07/15/20 Admitting Provider: Brandon Dejesus Consultations: Cardiology (Dr. Childers), Nephrology (Dr. Blake) Primary Care Physician: Juliann Muniz Course - Hospital Course Hospital Course: Discharge diagnosis: 1. COVID-19 pneumonia 2. End-stage renal disease 3. Volume overload 4. Chronic hypotension Hospital course: Patient is a pleasant 70-year-old gentleman who was admitted to the hospital on July 12, 2019 for COVID-19 pneumonia. Patient was seen by nephrology service for maintenance peritoneal dialysis. She was initially maintaining good oxygen saturation but by the time of discharge he was becoming hypoxic with exertion. He will need home oxygen, which is being arranged. Because of the hypoxia, he is also being discharged home on dexamethasone. He will also be treated with vitamin C and zinc as well as aspirin. His blood sugars were low during this hospitalization and therefore his glipizide was discontinued. However, since he will be going home on dexamethasone, he is being restarted on glipizide. He has been advised to check his blood sugar, blood pressure and heart rate 3 times a day and shows readings to his primary care provider. Many thanks for allowing me to participate in your patient's care. Please feel free to contact me with any questions or concerns. Discharge destination: Home Total amount of time spent coordinating this discharge: 32 minutes Resuscitation Status: 07/12/20 00:09 Resuscitation Status Routine Resuscitation Status: FULL: Full Resuscitation - Labs Lab Results: 07/15/20 04:34 07/15/20 04:34 Abnormal Lab Results - Last 48 hrs 07/14/20 05:52: Sodium 132 L, Potassium 3.2 L, Chloride 90 L, Anion Gap 22 H, BUN 51 H, Creatinine 10.64 H 07/14/20 05:52: RBC 3.35 L, Hgb 11.0 L, Hct 35.1 L, MCV 105.0 H, MCH 32.7 H, MCHC 31.3 L, Neutrophils % (Manual) 76 H, Lymphocytes % (Manual) 5 L, Monocytes % (Manual) 11 H 07/15/20 04:34: Sodium 132 L, Chloride 89 L, Carbon Dioxide 22 L, Anion Gap 25 H, BUN 59 H, Creatinine 10.14 H, C-Reactive Protein 16.34 H 12/31/20 04:34: RBC 3.51 L, Hgb 11.8 L, Hct 36.9 L, MCV 105.0 H, MCH 33.5 H, MCHC 31.9 L, Neutrophils % 81.1 H, Lymphocytes % 8.4 L, Monocytes % 10.2 H, Neutrophils # 7.2 H, Lymphocytes # 0.8 L, Monocytes # 0.9 H 07/15/20 04:34: Hemoglobin A1c 6.3 H Microbiology - Entire Visit 07/11/20 21:13 Venous blood - Right Hand Blood Culture - Preliminary NO GROWTH AT 48 HOURS 07/11/20 21:13 Venous blood - Right Arm Blood Culture - Preliminary NO GROWTH AT 48 HOURS - Physical Exam Vitals: Vital Signs (12 hours) Temp Pulse Resp BP BP Pulse Ox 07/15/20 11:09 98.5 F 88 20 127/60 97 07/15/20 08:00 98.4 F 78 26 H 92/51 L 95 07/15/20 04:00 97.7 F 96 24 H 102/59 L 95 07/15/20 03:31 94 L Weight Weight 166 lb 8 oz Physical Exam: The patient was seen and examined on the day of discharge. Patient denies chest pain or shortness of breath. Vital signs are stable. S1 and S2 are heard. Lungs are clear to auscultation bilaterally. Plan - Discharge Medications Prescriptions: Dexamethasone 6 mg PO DAILY #9 tablet Aspirin [Ecotrin Low Strength] 81 mg PO DAILY #9 tab glipiZIDE [glipiZIDE ER] 5 mg PO QA- #30 tab.er.24 Ascorbic Acid [Vitamin C] 1,000 mg PO DAILY #9 tablet Zinc Sulfate [Zinc-220] 220 mg PO DAILY #9 capsule Home Medications: Medication Instructions Recorded Confirmed Type Allopurinol 150 mg PO DAILY 07/12/20 07/12/20 History Atorvastatin Calcium 40 mg PO HS 07/12/20 07/12/20 History Cyclobenzaprine [Flexeril] 10 mg PO PRN PRN 07/12/20 07/12/20 History Domperidone 10 mg PO QID 07/12/20 07/12/20 History Magnesium Oxide [Magox 400] 400 mg PO DAILY 07/12/20 07/12/20 History Midodrine 10 mg PO TID 07/12/20 07/12/20 History Pantoprazole [Protonix] 40 mg PO BID 07/12/20 07/12/20 History Pregabalin 25 mg PO HS 07/12/20 07/12/20 History Sucroferric Oxyhydroxide [Velphoro] 1,000 mg PO QID-WM 07/12/20 07/12/20 History Zolpidem Tartrate 5 mg PO HS PRN 07/12/20 07/12/20 History Ascorbic Acid [Vitamin C] 1,000 mg PO DAILY #9 tablet 07/15/20 Rx Aspirin [Ecotrin Low Strength] 81 mg PO DAILY #9 tab 07/15/20 Rx Dexamethasone 6 mg PO DAILY #9 tablet 07/15/20 Rx Zinc Sulfate [Zinc-220] 220 mg PO DAILY #9 capsule 07/15/20 Rx glipiZIDE [glipiZIDE ER] 5 mg PO QAM-WM #30 tab.er.24 07/15/20 Rx Allergies: gabapentin Allergy (Verified 07/12/20 00:42) PER ER NOTES metoclopramide [From Reglan] Allergy (Verified 07/12/20 00:42) PER ER NOTES - Discharge Instructions Discharge Instructions:: Check your blood sugars, blood pressure and heart rate 3 times a day and shows readings to primary care provider. Activity:: Activity as Tolerated Nourishment:: Diabetic Diet, Heart Healthy Diet - Follow up Plan Referrals: Juliann Muniz [employer] [Primary Care Provider] - 3 Days Disposition: HOME Quality - Care Measures CORE MEASURES:: N/A
[2020-07-15 16:13] VITALS: BP 93/51; TEMP 98.3
[2020-07-15] MEDS ORDERED: Dexamethasone 4 MG TAB PO SCH (17:30)
--- NOTE | 2020-07-17 16:55 | EKG ---
Test Reason : Blood Pressure : / mmHG Vent. Rate : 100 BPM Atrial Rate : 077 BPM P-R Int : 000 ms QRS Dur : 180 ms QT Int : 456 ms P-R-T Axes : 000 -88 088 degrees QTc Int : 588 ms Wide QRS rhythm with occasional ventricular-paced complexes and with occasional Premature ventricular complexes Right bundle branch block Left anterior fascicular block Bifascicular block Abnormal ECG Confirmed by INA LEE ([id number]), greeting card editor MIKE WARREN ([id number]) on 07/17/2020 4:55:25 PM Referred By: Confirmed By:INA Nesbitt
== END 2020-07-15 19:45 | disposition home or self-care (01) | DRG 177 ==
LOC: ERS 16:51 → 2SW 21:06 → OBSVTOIN 07-12 16:22
PROVIDERS: ADMIT Internal Medicine; ATTEND Internal Medicine
PROC: 8E0ZXY6 Isolation (ICD-10-PCS; principal; 2020-07-12)
DX: U07.1 COVID-19 (principal); N18.6 End stage renal disease; J12.89 Other viral pneumonia; J96.01 Acute respiratory failure with hypoxia; I50.22 Chronic systolic (congestive) heart failure; M19.90 Unspecified osteoarthritis, unspecified site; I48.91 Unspecified atrial fibrillation; G47.00 Insomnia, unspecified; R77.8 Other specified abnormalities of plasma proteins; E11.22 Type 2 diabetes mellitus with diabetic chronic kidney disease; M10.9 Gout, unspecified; K58.9 Irritable bowel syndrome, unspecified; I25.10 Atherosclerotic heart disease of native coronary artery without angina pectoris; Z92.3 Personal history of irradiation; Z85.46 Personal history of malignant neoplasm of prostate; Z95.1 Presence of aortocoronary bypass graft; Z79.899 Other long term (current) drug therapy; D47.2 Monoclonal gammopathy; I95.9 Hypotension, unspecified; Z88.8 Allergy status to other drugs, medicaments and biological substances; E87.6 Hypokalemia
CPT/HCPCS: 0240U; 36415; 36416; 71045; 80048; 80053; 82533; 82553; 82728; 83036; 83605; 83615; 83735; 83880; 84145; 84484; 85007; 85025; 85027; 85379; 86140; 87040; 90945; 93005; G0257; J0692; J1650; J8540; P9047; Q0162

== ENCOUNTER 2020-08-08 10:37 | Emergency (ER) | payer MEDICARE ==
--- NOTE | 2020-08-08 11:22 | RAD ---
Frontal radiograph chest: 08/08/2020 COMPARISON: 07/11/2020 HISTORY: Cough with blurred vision and dizziness FINDINGS: Midline sternotomy wires, mediastinal clips, and a multilead left-sided pacing device prese nt. There is pulmonary vascular congestion with nonspecific interstitial prominence in the perihilar regions and both lung bases, right greater than left, worsened on the right when compared t o prior imaging. Blunting of the right costophrenic angle suggests a small right pleural effusion, more conspicuous as well. IMPRESSION: Worsening parenchymal opacity, particularly within the right base. Pulmonary edema is fav ored. Nonspecific infectious pneumonitis is a possibility. Recommend follow-up imaging following treatment to document resolution.
[2020-08-08 11:30] LABS: #Basophils 0.1 thou/uL (0.0-0.2); #Eosinphils 0.4 thou/uL (0.0-0.7); #Lymphocytes 0.7 thou/uL (1.20-3.40); #Monocytes 1.1 thou/uL (0.11-0.59); #Neutrophils 6.3 thou/uL (1.40-6.50); %Basophils 0.7 % (0.0-1.0); %Eosinophils 4.5 % (0.0-10.0); %Lymphocytes 8.6 % (21.0-51.0); %Neutrophils 73.2 % (42.0-75.0); Hemoglobin 11.2 g/dL (14.0-18.0); Mean Corpuscular Hemoglobin 34.8 pg (27.0-31.0); Mean Platelet Volume 8.3 fL (7.4-10.4); Platelet Count 215 thou/uL (130-400); RBC Distribution Width 15.6 % (11.5-14.5); Red Blood Cell (RBC) Count 3.21 mill/uL (4.70-6.10); White Blood Cell (WBC) Count 8.6 thou/uL (4.8-10.8)
[2020-08-08 11:45] LABS: ALT (SGPT) 13 U/L (8-55); AST (SGOT) 22 U/L (5-34); Albumin 2.9 g/dL (3.4-4.8); Alkaline Phosphatase 237 U/L (40-110); Anion Gap 19 mmol/L (10-20); BUN (Urea Nitrogen) 31 mg/dL (8.4-25.7); Bilirubin, Total 0.7 mg/dL (0.2-1.2); Calc. Creatinine Clearance 0 mL/min (70-130); Calcium 8.8 mg/dL (7.8-10.44); Carbon Dioxide 29 mmol/L (23-31); Chloride 95 mmol/L (98-107); Globulin 2.4 g/dL (2.4-3.5); Glucose 121 mg/dL (83-110); Potassium 4.3 mmol/L (3.5-5.1); Protein, Total 5.3 g/dL (5.8-8.1); Sodium 139 mmol/L (136-145)
[2020-08-08 12:06] LABS: CKMB 1.1 ng/mL (0-6.6)
== END 2020-08-08 12:56 | disposition home or self-care (01) ==
LOC: ERS 10:37
DX: I95.1 Orthostatic hypotension (principal); E11.22 Type 2 diabetes mellitus with diabetic chronic kidney disease; N18.4 Chronic kidney disease, stage 4 (severe); I48.91 Unspecified atrial fibrillation; M19.90 Unspecified osteoarthritis, unspecified site; M10.9 Gout, unspecified; K21.9 Gastro-esophageal reflux disease without esophagitis; I50.9 Heart failure, unspecified; G47.00 Insomnia, unspecified; Z79.899 Other long term (current) drug therapy; Z79.84 Long term (current) use of oral hypoglycemic drugs
CPT/HCPCS: 36415; 71045; 80053; 82553; 84484; 85025; 93005; 94760

== ENCOUNTER 2020-08-10 13:17 | Outpatient (CLI) | payer MEDICARE ==
--- NOTE | 2020-08-10 13:44 | RAD ---
CHEST 2 VIEWS: HISTORY: Cough, peroneal dialysis, blurred vision, dizziness. FINDINGS: Left ICD. Stable cardiomegaly. Fairly extensive bilateral vascular congestion with bilateral pleura l effusions greater on the right side and increased interstitial and alveolar opacity changes more so in the right lung but showing overall minimal improvement from prior study. No significant new proc ess. IMPRESSION: Stable to slightly improved bilateral vascular congestion and right pleural effusion with overall dec reased density in the right mid and lower chest when compared to prior exam. No significant new proc ess. Continued short-term followup. POS: OFF
== END 2020-08-10 13:18 | disposition home or self-care (01) ==
LOC: BICRAD 13:17
PROVIDERS: ATTEND Internal Medicine Critical Care Medicine
DX: R06.00 Dyspnea, unspecified (principal); J90 Pleural effusion, not elsewhere classified; R91.8 Other nonspecific abnormal finding of lung field; R09.89 Other specified symptoms and signs involving the circulatory and respiratory systems
CPT/HCPCS: 71046

== ENCOUNTER 2020-12-07 09:39 | Outpatient (CLI) | payer MEDICARE | END 2020-12-07 09:40 | disposition home or self-care (01) | PROVIDERS: ATTEND Registered Nurse | DX: R13.14 Dysphagia, pharyngoesophageal phase (principal); R63.3 Feeding difficulties | CPT/HCPCS: 74230 ==

== ENCOUNTER 2020-12-20 09:09 | Inpatient (IN) | payer MEDICARE ==
[2020-12-20 09:42] LABS: #Basophils 0.1 thou/uL (0.0-0.2); #Eosinphils 0.6 thou/uL (0.0-0.7); #Lymphocytes 0.8 thou/uL (1.20-3.40); #Monocytes 1.2 thou/uL (0.11-0.59); #Neutrophils 7.4 thou/uL (1.40-6.50); %Eosinophils 5.8 % (0.0-10.0); %Lymphocytes 7.6 % (21.0-51.0); %Monocytes 11.7 % (0.0-10.0); Hemoglobin 12.4 g/dL (14.0-18.0); Mean Corpuscular HGB CONC 30.6 g/dL (32.0-36.0); Mean Corpuscular Hemoglobin 32.3 pg (27.0-31.0); Mean Platelet Volume 7.7 fL (7.4-10.4); Platelet Count 316 thou/uL (130-400); RBC Distribution Width 15.6 % (11.5-14.5); Red Blood Cell (RBC) Count 3.83 mill/uL (4.70-6.10)
[2020-12-20 10:00] LABS: ALT (SGPT) 18 U/L (8-55); AST (SGOT) 27 U/L (5-34); Albumin 3.2 g/dL (3.4-4.8); Alkaline Phosphatase 253 U/L (40-110); Anion Gap 16 mmol/L (10-20); BUN (Urea Nitrogen) 33 mg/dL (8.4-25.7); Bilirubin, Total 0.6 mg/dL (0.2-1.2); Calc. Creatinine Clearance 0 mL/min (70-130); Calcium 10.1 mg/dL (7.8-10.44); Carbon Dioxide 30 mmol/L (23-31); Chloride 97 mmol/L (98-107); Glucose 161 mg/dL (83-110); Lipase 251 U/L (8-78); Magnesium 2.1 mg/dL (1.6-2.6); Protein, Total 6.2 g/dL (5.8-8.1); Sodium 139 mmol/L (136-145)
[2020-12-20 10:21] LABS: CKMB 1.8 ng/mL (0-6.6)
[2020-12-20] MEDS ORDERED: Insulin Regular 300 UNITS/3 ML VIAL SC PRN ×2 (11:13)
[2020-12-20] MEDS ORDERED: Senokot S 8.6-50 MG TAB PO PRN (11:13)
[2020-12-20] MEDS ORDERED: Calcium Carbonate 500 MG ChewTAB PO PRN (11:13)
[2020-12-20] MEDS ORDERED: Dextrose 50% Abboject 50 ML SYRINGE SLOW IVP PRN (11:13)
[2020-12-20] MEDS ORDERED: Dextrose 5% in Water 1,000 ML IV PRN (11:13)
[2020-12-20] MEDS ORDERED: Acetaminophen 325 MG TAB PO PRN (11:13)
[2020-12-20] MEDS ORDERED: Fludrocortisone Acetate 0.1 MG TAB PO SCH ×2 (11:30→21:00)
[2020-12-20 12:44] LABS: SARS-CoV-2 NAA Rapid Test Not Detected (NotDetected)
[2020-12-20 13:04] LABS: Troponin I 0.084 ng/mL (< 0.028)
[2020-12-20] MEDS: Amiodarone 450 MG in Dextrose 5% in Water 250 ML IVPB SCH ×2 (13:18→21:33)
[2020-12-20 13:56] VITALS: BMI 25.8
[2020-12-20] MEDS ORDERED: Propofol 1,000 MG/100 ML VIAL IV ONE (17:33)
[2020-12-20] MEDS ORDERED: Vecuronium 10 MG VIAL ONE (17:33)
[2020-12-20] MEDS: Atorvastatin Calcium 40 MG TAB PO SCH (21:32)
[2020-12-20] MEDS: Heparin 5,000 UNITS/ML VIAL SC SCH (21:32)
[2020-12-20] MEDS: Pregabalin 25 MG CAP PO SCH (21:32)
[2020-12-20] MEDS: Midodrine HCl 5 MG TAB PO PRN (21:34)
[2020-12-21 03:52] LABS: ALT (SGPT) 15 U/L (8-55); AST (SGOT) 23 U/L (5-34); Alkaline Phosphatase 209 U/L (40-110); Anion Gap 16 mmol/L (10-20); BUN (Urea Nitrogen) 37 mg/dL (8.4-25.7); Bilirubin, Total 0.7 mg/dL (0.2-1.2); Calc. Creatinine Clearance 11 mL/min (70-130); Calcium 9.7 mg/dL (7.8-10.44); Carbon Dioxide 29 mmol/L (23-31); Chloride 95 mmol/L (98-107); Globulin 2.8 g/dL (2.4-3.5); Glucose 165 mg/dL (83-110); Potassium 3.4 mmol/L (3.5-5.1); Protein, Total 5.8 g/dL (5.8-8.1); Sodium 137 mmol/L (136-145)
[2020-12-21 05:09] LABS: Band 4 % (5-11); Eosinophils 6 % (0-10); Hemoglobin 12.7 g/dL (14.0-18.0); Lymphocytes 15 % (21-51); MDiff Complete? YES; Mean Corpuscular HGB CONC 32.1 g/dL (32.0-36.0); Mean Corpuscular Hemoglobin 33.7 pg (27.0-31.0); Mean Platelet Volume 7.9 fL (7.4-10.4); Monocytes 6 % (0-10); Neutrophil 69 % (42-75); Platelet Count 284 thou/uL (130-400); RBC Distribution Width 15.7 % (11.5-14.5); Red Blood Cell (RBC) Count 3.76 mill/uL (4.70-6.10); White Blood Cell (WBC) Count 10.5 thou/uL (4.8-10.8)
[2020-12-21] MEDS: Midodrine HCl 5 MG TAB PO PRN (05:59)
[2020-12-21] MEDS ORDERED: Potassium Chloride 8 MEQ TAB PO SCH (07:30)
[2020-12-21] MEDS: Allopurinol 100 MG TAB PO SCH (08:17)
[2020-12-21] MEDS: Fludrocortisone Acetate 0.1 MG TAB PO SCH (08:17)
[2020-12-21] MEDS: Aspirin 81 mg Enteric Coated Tablet PO SCH (08:18)
[2020-12-21] MEDS: Heparin 5,000 UNITS/ML VIAL SC SCH ×2 (08:18→20:16)
[2020-12-21] MEDS ORDERED: Amiodarone 200 MG TAB PO SCH (11:15)
[2020-12-21] MEDS: Midodrine HCl 5 MG TAB PO SCH ×3 (11:34→20:16)
[2020-12-21] MEDS: Amiodarone 200 MG TAB PO SCH ×2 (15:27→20:15)
[2020-12-21] MEDS: Pregabalin 25 MG CAP PO SCH (20:15)
[2020-12-21] MEDS: Atorvastatin Calcium 40 MG TAB PO SCH (20:16)
[2020-12-22 04:45] LABS: Hemoglobin 12.8 g/dL (14.0-18.0); Mean Corpuscular Hemoglobin 33.2 pg (27.0-31.0); Red Blood Cell (RBC) Count 3.85 mill/uL (4.70-6.10); White Blood Cell (WBC) Count 10.2 thou/uL (4.8-10.8)
[2020-12-22 04:46] LABS: #Basophils 0.1 thou/uL (0.0-0.2); #Eosinphils 0.4 thou/uL (0.0-0.7); #Lymphocytes 1.1 thou/uL (1.20-3.40); #Monocytes 1.1 thou/uL (0.11-0.59); #Neutrophils 7.5 thou/uL (1.40-6.50); %Basophils 0.7 % (0.0-1.0); %Eosinophils 4.4 % (0.0-10.0); %Lymphocytes 11.1 % (21.0-51.0); %Monocytes 10.4 % (0.0-10.0); %Neutrophils 73.3 % (42.0-75.0); Mean Corpuscular HGB CONC 31.7 g/dL (32.0-36.0); Mean Platelet Volume 7.9 fL (7.4-10.4); Platelet Count 286 thou/uL (130-400); RBC Distribution Width 15.8 % (11.5-14.5)
[2020-12-22 05:17] LABS: ALT (SGPT) 13 U/L (8-55); AST (SGOT) 21 U/L (5-34); Albumin 3.1 g/dL (3.4-4.8); Alkaline Phosphatase 198 U/L (40-110); Anion Gap 19 mmol/L (10-20); BUN (Urea Nitrogen) 38 mg/dL (8.4-25.7); Bilirubin, Total 0.7 mg/dL (0.2-1.2); Calc. Creatinine Clearance 11 mL/min (70-130); Calcium 9.4 mg/dL (7.8-10.44); Carbon Dioxide 26 mmol/L (23-31); Chloride 94 mmol/L (98-107); Globulin 2.6 g/dL (2.4-3.5); Glucose 146 mg/dL (83-110); Potassium 3.7 mmol/L (3.5-5.1); Protein, Total 5.7 g/dL (5.8-8.1); Sodium 135 mmol/L (136-145)
[2020-12-22 05:33] LABS: Free T4 (Free Thyroxine) 0.85 ng/dL (0.70-1.48); Thyroid Stimulating Hormone 3.554 uIU/mL (0.35-4.94)
[2020-12-22] MEDS: Allopurinol 100 MG TAB PO SCH (09:27)
[2020-12-22] MEDS: Amiodarone 200 MG TAB PO SCH ×2 (09:27→15:05)
[2020-12-22] MEDS: Aspirin 81 mg Enteric Coated Tablet PO SCH (09:27)
[2020-12-22] MEDS: Midodrine HCl 5 MG TAB PO SCH ×2 (09:28→15:05)
[2020-12-22] MEDS: Fludrocortisone Acetate 0.1 MG TAB PO SCH (09:28)
[2020-12-22] MEDS: Heparin 5,000 UNITS/ML VIAL SC SCH (09:29)
[2020-12-22 12:45] VITALS: TEMP 98.5
[2020-12-22 15:11] VITALS: BP 91/59
== END 2020-12-22 16:23 | disposition home or self-care (01) | DRG 308 ==
LOC: ERS 09:09 → CCU 11:09 → 2NO 12-21 14:47
PROVIDERS: ADMIT Internal Medicine; ATTEND Internal Medicine
PROC: 3E1M39Z Irrigation of Peritoneal Cavity using Dialysate, Percutaneous Approach (ICD-10-PCS; principal; 2020-12-20)
DX: I47.2 Ventricular tachycardia (principal); N18.6 End stage renal disease; I50.22 Chronic systolic (congestive) heart failure; I42.8 Other cardiomyopathies; E11.22 Type 2 diabetes mellitus with diabetic chronic kidney disease; I25.10 Atherosclerotic heart disease of native coronary artery without angina pectoris; M10.9 Gout, unspecified; K21.9 Gastro-esophageal reflux disease without esophagitis; E11.51 Type 2 diabetes mellitus with diabetic peripheral angiopathy without gangrene; I48.20 Chronic atrial fibrillation, unspecified; Z20.822 Contact with and (suspected) exposure to COVID-19; I95.89 Other hypotension; D64.9 Anemia, unspecified; E87.6 Hypokalemia; Z95.810 Presence of automatic (implantable) cardiac defibrillator; Z88.8 Allergy status to other drugs, medicaments and biological substances; Z79.82 Long term (current) use of aspirin; Z79.899 Other long term (current) drug therapy; Z99.2 Dependence on renal dialysis; Z85.46 Personal history of malignant neoplasm of prostate; Z95.1 Presence of aortocoronary bypass graft; Z98.890 Other specified postprocedural states; Z98.49 Cataract extraction status, unspecified eye
CPT/HCPCS: 0240U; 36415; 36416; 71045; 80053; 82553; 83690; 83735; 84439; 84443; 84481; 84484; 85025; 90945; 93005; 93010; 93306; 96374; G0257; J0282; J1644; J1815; J7070

== ENCOUNTER 2021-01-10 08:37 | Day surgery (SDC) | payer MEDICARE ==
[2021-01-07 11:47] VITALS: BMI 22.9
[2021-01-10 10:02] LABS: #Eosinphils 0.3 thou/uL (0.0-0.7); #Lymphocytes 0.7 thou/uL (1.20-3.40); #Monocytes 0.9 thou/uL (0.11-0.59); #Neutrophils 4.5 thou/uL (1.40-6.50); %Basophils 0.7 % (0.0-1.0); %Eosinophils 5.2 % (0.0-10.0); %Lymphocytes 11.1 % (21.0-51.0); %Monocytes 14.1 % (0.0-10.0); %Neutrophils 68.8 % (42.0-75.0); Hemoglobin 11.8 g/dL (14.0-18.0); Mean Corpuscular HGB CONC 31.6 g/dL (32.0-36.0); Mean Corpuscular Hemoglobin 33.4 pg (27.0-31.0); Mean Platelet Volume 7.8 fL (7.4-10.4); Platelet Count 279 thou/uL (130-400); RBC Distribution Width 16.3 % (11.5-14.5); Red Blood Cell (RBC) Count 3.54 mill/uL (4.70-6.10); White Blood Cell (WBC) Count 6.6 thou/uL (4.8-10.8)
[2021-01-10 10:16] LABS: INR-International Normal Ratio 0.9; PTT 31.9 sec (22.9-36.1); Prothrombin Time 12.6 sec (12.0-14.7)
[2021-01-10 10:18] LABS: Anion Gap 21 mmol/L (10-20); BUN (Urea Nitrogen) 29 mg/dL (8.4-25.7); Calc. Creatinine Clearance 9 mL/min (70-130); Calcium 9.5 mg/dL (7.8-10.44); Carbon Dioxide 26 mmol/L (23-31); Chloride 96 mmol/L (98-107); Glucose 119 mg/dL (83-110); Potassium 4.1 mmol/L (3.5-5.1); Sodium 139 mmol/L (136-145)
[2021-01-10] MEDS ORDERED: Lidocaine 1% (PF) 30 ML VIAL ONE (11:24)
[2021-01-10] MEDS ORDERED: Propofol 500 MG/50 ML VIAL ONE (11:29)
[2021-01-10] MEDS ORDERED: Heparin 10,000 UNITS/ 10 ML VIAL ONE (11:33)
[2021-01-10] MEDS ORDERED: Fentanyl 100 MCG/2 ML VIAL ONE (11:36)
[2021-01-10] MEDS ORDERED: PROPOFOL 200 MG/20 ML VIAL ONE (11:54)
[2021-01-10] MEDS ORDERED: PHENYLEPHRINE-NS 100 MCG/ML 10 ML SYRINGE ONE (11:54)
[2021-01-10] MEDS ORDERED: ePHEDrine Sulfate 50 MG/10 ML VIAL ONE (11:54)
[2021-01-10] MEDS ORDERED: DOPamine 400 MG/D5W 250 ML 250 ML ONE (12:28)
== END 2021-01-10 17:45 | disposition home or self-care (01) ==
LOC: CCL 08:37
PROVIDERS: ATTEND Internal Medicine Cardiovascular Disease
PROC: 02583ZZ Destruction of Conduction Mechanism, Percutaneous Approach (ICD-10-PCS; principal; 2021-01-10)
DX: I48.11 Longstanding persistent atrial fibrillation (principal); I47.2 Ventricular tachycardia; I47.1 Supraventricular tachycardia; I25.5 Ischemic cardiomyopathy; I13.2 Hypertensive heart and chronic kidney disease with heart failure and with stage 5 chronic kidney disease, or end stage renal disease; E11.22 Type 2 diabetes mellitus with diabetic chronic kidney disease; N18.6 End stage renal disease; I50.22 Chronic systolic (congestive) heart failure; M19.90 Unspecified osteoarthritis, unspecified site; M10.9 Gout, unspecified; E11.51 Type 2 diabetes mellitus with diabetic peripheral angiopathy without gangrene; I25.10 Atherosclerotic heart disease of native coronary artery without angina pectoris; I25.2 Old myocardial infarction; Z87.891 Personal history of nicotine dependence; Z79.82 Long term (current) use of aspirin; Z79.84 Long term (current) use of oral hypoglycemic drugs; Z79.899 Other long term (current) drug therapy; Z88.8 Allergy status to other drugs, medicaments and biological substances; Z95.1 Presence of aortocoronary bypass graft; Z95.810 Presence of automatic (implantable) cardiac defibrillator; Z99.2 Dependence on renal dialysis
CPT/HCPCS: 36415; 76942; 80048; 85025; 85610; 85730; 93005; 93010; 93613; 93623; 93650; C1732; J1265; J1644; J2001; J2704; J3010

== ENCOUNTER 2021-01-17 11:53 | Inpatient (IN) | payer MEDICARE ==
[2021-01-17 12:37] LABS: Hemoglobin 12.5 g/dL (14.0-18.0); Mean Corpuscular HGB CONC 33.3 g/dL (32.0-36.0); Mean Corpuscular Hemoglobin 34.4 pg (27.0-31.0); Mean Platelet Volume 7.9 fL (7.4-10.4); Platelet Count 230 thou/uL (130-400); Red Blood Cell (RBC) Count 3.62 mill/uL (4.70-6.10); White Blood Cell (WBC) Count 6.8 thou/uL (4.8-10.8)
[2021-01-17 12:53] LABS: ALT (SGPT) 16 U/L (8-55); AST (SGOT) 34 U/L (5-34); Albumin 3.5 g/dL (3.4-4.8); Alkaline Phosphatase 210 U/L (40-110); Anion Gap 22 mmol/L (10-20); BUN (Urea Nitrogen) 27 mg/dL (8.4-25.7); Band 20 % (5-11); Bilirubin, Total 0.7 mg/dL (0.2-1.2); Calc. Creatinine Clearance 0 mL/min (70-130); Calcium 9.4 mg/dL (7.8-10.44); Carbon Dioxide 26 mmol/L (23-31); Chloride 91 mmol/L (98-107); Eosinophils 5 % (0-10); Globulin 3.1 g/dL (2.4-3.5); Glucose 103 mg/dL (83-110); Lymphocytes 12 % (21-51); MDiff Complete? YES; Macrocytosis SLIGHT = 6-15 cells (100X) (0-5/hpf); Monocytes 13 % (0-10); Neutrophil 40 % (42-75); Platelet Morphology Comment Appears Adequate; Polychromasia SLIGHT = 2-3 cells (100X) (0-2/hpf); Potassium 3.6 mmol/L (3.5-5.1); Protein, Total 6.6 g/dL (5.8-8.1); Reactive Lymphocytes 9 % (0-10); Sodium 135 mmol/L (136-145)
[2021-01-17 13:14] LABS: CKMB 3.3 ng/mL (0-6.6)
[2021-01-17] MEDS ORDERED: Aspirin 325 MG TAB ONE (13:17)
[2021-01-17] MEDS ORDERED: Acetaminophen 325 MG TAB PO PRN (15:15)
[2021-01-17] MEDS ORDERED: hydrALAZINE 20 MG/ML VIAL SLOW IVP PRN (15:15)
[2021-01-17] MEDS ORDERED: HumaLOG 300 UNITS/3 ML VIAL SC PRN ×2 (15:15)
[2021-01-17] MEDS ORDERED: Dextrose 50% Abboject 50 ML SYRINGE SLOW IVP PRN (15:15)
[2021-01-17] MEDS ORDERED: Dextrose 5% in Water 1,000 ML IV PRN (15:15)
[2021-01-17 16:32] LABS: Troponin I 0.161 ng/mL (< 0.028)
[2021-01-17 17:57] VITALS: BMI 23.6
[2021-01-17 18:41] LABS: Troponin I 0.161 ng/mL (< 0.028)
[2021-01-17] MEDS: Heparin 5,000 UNITS/ML VIAL SC SCH (20:46)
[2021-01-17] MEDS: Midodrine HCl 5 MG TAB PO SCH (20:47)
[2021-01-17] MEDS: glipiZIDE 5 MG TAB PO SCH (20:47)
[2021-01-17] MEDS ORDERED: Pregabalin 25 MG CAP PO SCH (21:00)
[2021-01-17] MEDS ORDERED: Atorvastatin Calcium 40 MG TAB PO SCH (21:00)
[2021-01-18 03:50] VITALS: TEMP 97.7
[2021-01-18 04:30] LABS: Mean Corpuscular HGB CONC 32.5 g/dL (32.0-36.0); Mean Corpuscular Hemoglobin 33.5 pg (27.0-31.0); Mean Platelet Volume 7.8 fL (7.4-10.4); Platelet Count 215 thou/uL (130-400); Red Blood Cell (RBC) Count 3.59 mill/uL (4.70-6.10); White Blood Cell (WBC) Count 5.7 thou/uL (4.8-10.8)
[2021-01-18 04:46] LABS: Anion Gap 22 mmol/L (10-20); BUN (Urea Nitrogen) 27 mg/dL (8.4-25.7); Calc. Creatinine Clearance 10 mL/min (70-130); Calcium 9.1 mg/dL (7.8-10.44); Carbon Dioxide 24 mmol/L (23-31); Chloride 94 mmol/L (98-107); Glucose 98 mg/dL (83-110); Potassium 3.2 mmol/L (3.5-5.1); Sodium 137 mmol/L (136-145)
[2021-01-18 04:54] LABS: Band 7 % (5-11); Eosinophils 8 % (0-10); Lymphocytes 12 % (21-51); MDiff Complete? YES; Monocytes 23 % (0-10); Neutrophil 50 % (42-75)
[2021-01-18] MEDS ORDERED: Potassium Chloride 10 MEQ TAB PO SCH (07:45)
[2021-01-18] MEDS: glipiZIDE 5 MG TAB PO SCH (08:43)
[2021-01-18] MEDS: Midodrine HCl 5 MG TAB PO SCH (08:43)
[2021-01-18] MEDS: Heparin 5,000 UNITS/ML VIAL SC SCH (08:45)
[2021-01-18] MEDS ORDERED: Allopurinol 300 MG TAB PO SCH (09:00)
[2021-01-18] MEDS ORDERED: Magnesium Oxide 400 MG TAB PO SCH (09:00)
[2021-01-18] MEDS ORDERED: Aspirin Chewable 81 MG TAB PO SCH (09:00)
[2021-01-18] MEDS ORDERED: Famotidine 20 MG TAB PO SCH (09:00)
[2021-01-18] MEDS ORDERED: Benzonatate 100 MG CAP PO PRN (09:43)
[2021-01-18] MEDS ORDERED: Potassium Chloride 20 MEQ TAB PO SCH (10:00)
[2021-01-18] MEDS ORDERED: Azithromycin 250 MG TAB PO SCH (10:00)
[2021-01-18 12:03] VITALS: BP 111/68
[2021-01-18] MEDS ORDERED: Albuterol Sulfate 1.25 MG/3 ML NEB NEB SCH (15:00)
== END 2021-01-18 13:20 | disposition home or self-care (01) | DRG 202 ==
LOC: ERS 11:53 → 2NO 15:15
PROVIDERS: ADMIT Internal Medicine; ATTEND Internal Medicine
PROC: 3E1M39Z Irrigation of Peritoneal Cavity using Dialysate, Percutaneous Approach (ICD-10-PCS; principal; 2021-01-17)
DX: J20.9 Acute bronchitis, unspecified (principal); N18.6 End stage renal disease; I50.23 Acute on chronic systolic (congestive) heart failure; J96.00 Acute respiratory failure, unspecified whether with hypoxia or hypercapnia; M10.9 Gout, unspecified; E11.22 Type 2 diabetes mellitus with diabetic chronic kidney disease; I48.91 Unspecified atrial fibrillation; I25.10 Atherosclerotic heart disease of native coronary artery without angina pectoris; I95.89 Other hypotension; Z87.891 Personal history of nicotine dependence; M19.90 Unspecified osteoarthritis, unspecified site; K21.9 Gastro-esophageal reflux disease without esophagitis; Z98.49 Cataract extraction status, unspecified eye; Z88.8 Allergy status to other drugs, medicaments and biological substances; Z79.899 Other long term (current) drug therapy; Z85.46 Personal history of malignant neoplasm of prostate; Z99.2 Dependence on renal dialysis; Z95.810 Presence of automatic (implantable) cardiac defibrillator; Z79.82 Long term (current) use of aspirin
CPT/HCPCS: 36415; 36416; 71045; 80048; 80053; 82553; 83880; 84484; 85025; 90945; 93005; 94640; G0257; J1644

== ENCOUNTER 2021-02-02 14:24 | Outpatient (CLI) | payer MEDICARE | END 2021-02-02 14:25 | disposition home or self-care (01) | LOC: ULT 14:24 | PROVIDERS: ATTEND Internal Medicine Cardiovascular Disease | DX: R10.31 Right lower quadrant pain (principal) | CPT/HCPCS: 93926 ==

== ENCOUNTER 2021-03-03 13:42 | Emergency (ER) | payer MEDICARE ==
[2021-03-03] MEDS ORDERED: Ketorolac Tromethamine 30 MG/ML VIAL ONE (16:29)
[2021-03-03] MEDS ORDERED: predniSONE 20 MG TAB ONE (17:14)
== END 2021-03-03 17:25 | disposition home or self-care (01) ==
LOC: ERS 13:42
DX: M47.816 Spondylosis without myelopathy or radiculopathy, lumbar region (principal); E11.22 Type 2 diabetes mellitus with diabetic chronic kidney disease; N18.4 Chronic kidney disease, stage 4 (severe); I50.9 Heart failure, unspecified; M10.9 Gout, unspecified; M19.90 Unspecified osteoarthritis, unspecified site; I48.91 Unspecified atrial fibrillation; K21.9 Gastro-esophageal reflux disease without esophagitis; Z79.899 Other long term (current) drug therapy
CPT/HCPCS: 72100; 96372; J1885; J7512

== ENCOUNTER 2021-03-21 12:46 | Inpatient (IN) | payer MEDICARE ==
[2021-03-21] MEDS ORDERED: Iopamidol-370 76% 500 ML 1 ML ONE (13:32)
[2021-03-21 14:13] LABS: #Eosinphils 0.3 thou/uL (0.0-0.7); #Lymphocytes 0.7 thou/uL (1.20-3.40); #Monocytes 1.4 thou/uL (0.11-0.59); #Neutrophils 12.1 thou/uL (1.40-6.50); %Basophils 0.2 % (0.0-1.0); %Lymphocytes 4.6 % (21.0-51.0); %Monocytes 9.7 % (0.0-10.0); %Neutrophils 83.4 % (42.0-75.0); Hemoglobin 11.2 g/dL (14.0-18.0); Mean Corpuscular Hemoglobin 33.3 pg (27.0-31.0); Mean Platelet Volume 7.7 fL (7.4-10.4); Platelet Count 234 thou/uL (130-400); Red Blood Cell (RBC) Count 3.38 mill/uL (4.70-6.10); White Blood Cell (WBC) Count 14.5 thou/uL (4.8-10.8)
[2021-03-21 14:25] LABS: Acetaminophen Less than 6.0 mcg/mL (10.0-30.0); Alcohol Less than 10 mg/dL (Less than 10); Salicylate Less than 8.0 mg/dL (15.0-30.0)
[2021-03-21 14:26] LABS: ALT (SGPT) 11 U/L (8-55); AST (SGOT) 20 U/L (5-34); Albumin 2.9 g/dL (3.4-4.8); Alkaline Phosphatase 202 U/L (40-110); Anion Gap 18 mmol/L (10-20); BUN (Urea Nitrogen) 41 mg/dL (8.4-25.7); Bilirubin, Total 0.7 mg/dL (0.2-1.2); Calc. Creatinine Clearance 0 mL/min (70-130); Carbon Dioxide 28 mmol/L (23-31); Chloride 86 mmol/L (98-107); Globulin 3.3 g/dL (2.4-3.5); Glucose 133 mg/dL (83-110); Lipase 175 U/L (8-78); Potassium 3.8 mmol/L (3.5-5.1); Protein, Total 6.2 g/dL (5.8-8.1); Sodium 128 mmol/L (136-145)
[2021-03-21 15:56] LABS: SARS-CoV-2 NAA Rapid Test Not Detected (NotDetected)
[2021-03-21] MEDS ORDERED: [UNRECOGNIZED DRUG - REMARK] IVPB PRN (15:59)
[2021-03-21] MEDS ORDERED: VANCOMYCIN 1.25 GM/250 ML BAG 1.25 GM in Premix Bag 1 BAG IVPB SCH (16:00)
[2021-03-21] MEDS ORDERED: Cefepime 2 GM VIAL ONE (16:02)
[2021-03-21] MEDS ORDERED: Vancomycin 1 GM in Premix Bag 1 BAG IVPB SCH ×2 (16:15→21:00)
[2021-03-21] MEDS ORDERED: Senokot S 8.6-50 MG TAB PO PRN (17:18)
[2021-03-21] MEDS ORDERED: Acetaminophen 650 MG Suppository PR PRN (17:18)
[2021-03-21] MEDS ORDERED: Acetaminophen 325 MG TAB PO PRN (17:18)
[2021-03-21] MEDS ORDERED: Dextrose 5% in Water 1,000 ML IV PRN (17:30)
[2021-03-21] MEDS ORDERED: Dextrose 50% Abboject 50 ML SYRINGE SLOW IVP PRN (17:30)
[2021-03-21] MEDS ORDERED: HumaLOG 300 UNITS/3 ML VIAL SC PRN (17:30)
[2021-03-21 17:53] LABS: Hemoglobin A1c 7.3 % (4.0-6.0)
[2021-03-21] MEDS ORDERED: Morphine 2 MG/ML VIAL SLOW IVP PRN (18:11)
[2021-03-21 18:14] LABS: Magnesium 2.8 mg/dL (1.6-2.6)
[2021-03-21 18:19] LABS: Troponin I 0.083 ng/mL (< 0.028)
[2021-03-21 18:35] LABS: CKMB 4.6 ng/mL (0-6.6)
[2021-03-21] MEDS: Sodium Chloride 0.9% 1,000 ML IV SCH (19:12)
[2021-03-21 20:29] LABS: #Eosinphils 0.3 thou/uL (0.0-0.7); #Lymphocytes 0.8 thou/uL (1.20-3.40); #Monocytes 1.1 thou/uL (0.11-0.59); #Neutrophils 11.1 thou/uL (1.40-6.50); %Basophils 0.2 % (0.0-1.0); %Lymphocytes 5.6 % (21.0-51.0); %Monocytes 8.3 % (0.0-10.0); %Neutrophils 83.8 % (42.0-75.0); Hemoglobin 11.4 g/dL (14.0-18.0); Mean Corpuscular HGB CONC 34.2 g/dL (32.0-36.0); Mean Corpuscular Hemoglobin 35.6 pg (27.0-31.0); Mean Platelet Volume 8.2 fL (7.4-10.4); Platelet Count 224 thou/uL (130-400); Red Blood Cell (RBC) Count 3.19 mill/uL (4.70-6.10); White Blood Cell (WBC) Count 13.3 thou/uL (4.8-10.8)
[2021-03-21 23:59] LABS: HBSAB Concentration Less than 8.00 mIU/mL; HBSAg Index 0.17 S/CO (0-0.99); Hep B Surf AB Non-Reactive (NonReactive); Hep B Surf Ag Non-Reactive S/CO (NonReactive)
[2021-03-22 06:33] LABS: #Eosinphils 0.3 thou/uL (0.0-0.7); #Lymphocytes 0.7 thou/uL (1.20-3.40); #Neutrophils 9.8 thou/uL (1.40-6.50); %Eosinophils 2.8 % (0.0-10.0); %Lymphocytes 5.7 % (21.0-51.0); %Monocytes 8.5 % (0.0-10.0); Hemoglobin 10.9 g/dL (14.0-18.0); Mean Corpuscular HGB CONC 31.7 g/dL (32.0-36.0); Mean Corpuscular Hemoglobin 33.1 pg (27.0-31.0); Mean Platelet Volume 7.9 fL (7.4-10.4); Platelet Count 239 thou/uL (130-400); Red Blood Cell (RBC) Count 3.28 mill/uL (4.70-6.10); White Blood Cell (WBC) Count 11.9 thou/uL (4.8-10.8)
[2021-03-22 06:53] LABS: Anion Gap 17 mmol/L (10-20); BUN (Urea Nitrogen) 44 mg/dL (8.4-25.7); Calc. Creatinine Clearance 12 mL/min (70-130); Calcium 9.5 mg/dL (7.8-10.44); Carbon Dioxide 26 mmol/L (23-31); Chloride 91 mmol/L (98-107); Glucose 128 mg/dL (83-110); Potassium 3.4 mmol/L (3.5-5.1); Sodium 131 mmol/L (136-145)
[2021-03-22 06:55] LABS: Vancomycin, Trough 30.2 ug/mL
[2021-03-22 09:39] LABS: Anion Gap 18 mmol/L (10-20); BUN (Urea Nitrogen) 46 mg/dL (8.4-25.7); Calc. Creatinine Clearance 11 mL/min (70-130); Calcium 9.3 mg/dL (7.8-10.44); Carbon Dioxide 24 mmol/L (23-31); Chloride 91 mmol/L (98-107); Glucose 127 mg/dL (83-110); Potassium 3.5 mmol/L (3.5-5.1); Sodium 129 mmol/L (136-145)
[2021-03-22] MEDS: Sodium Chloride 0.9% 1,000 ML IV SCH ×2 (10:00→14:16)
[2021-03-22] MEDS: Cefepime 1 GM in Sodium Chloride 0.9% 100 ML IVPB SCH ×2 (12:11→17:25)
[2021-03-22] MEDS ORDERED: Pantoprazole 40 MG VIAL IVP SCH (19:00)
[2021-03-22 19:28] LABS: Vancomycin, Random 26.6 ug/mL (See Comment)
[2021-03-23] MEDS: Sodium Chloride 0.9% 1,000 ML IV SCH (03:25)
[2021-03-23] MEDS: Cefepime 1 GM in Sodium Chloride 0.9% 100 ML IVPB SCH ×2 (04:45→17:19)
[2021-03-23 05:37] LABS: #Eosinphils 0.3 thou/uL (0.0-0.7); #Lymphocytes 0.4 thou/uL (1.20-3.40); #Monocytes 1.1 thou/uL (0.11-0.59); #Neutrophils 8.9 thou/uL (1.40-6.50); %Basophils 0.3 % (0.0-1.0); %Eosinophils 2.5 % (0.0-10.0); %Lymphocytes 4.1 % (21.0-51.0); %Monocytes 10.4 % (0.0-10.0); %Neutrophils 82.8 % (42.0-75.0); Hemoglobin 11.6 g/dL (14.0-18.0); Mean Corpuscular HGB CONC 32.1 g/dL (32.0-36.0); Mean Corpuscular Hemoglobin 33.7 pg (27.0-31.0); Mean Platelet Volume 7.9 fL (7.4-10.4); Platelet Count 234 thou/uL (130-400); Red Blood Cell (RBC) Count 3.43 mill/uL (4.70-6.10); White Blood Cell (WBC) Count 10.8 thou/uL (4.8-10.8)
[2021-03-23 06:05] LABS: Anion Gap 18 mmol/L (10-20); BUN (Urea Nitrogen) 45 mg/dL (8.4-25.7); Calc. Creatinine Clearance 11 mL/min (70-130); Calcium 9.3 mg/dL (7.8-10.44); Carbon Dioxide 19 mmol/L (23-31); Chloride 93 mmol/L (98-107); Glucose 157 mg/dL (83-110); Potassium 3.3 mmol/L (3.5-5.1); Sodium 127 mmol/L (136-145)
[2021-03-23 09:38] LABS: Vancomycin, Random 27.3 ug/mL (See Comment)
[2021-03-23] MEDS: Acetaminophen/Codeine 30-300mg Tablet PO PRN ×2 (10:18→15:58)
[2021-03-23] MEDS: Midodrine HCl 5 MG TAB PO SCH ×3 (10:19→20:49)
[2021-03-23] MEDS: Pantoprazole 40 MG VIAL IVP SCH ×2 (10:20→20:49)
[2021-03-23] MEDS: Ondansetron ODT 4 MG TAB PO PRN ×2 (10:30→19:47)
[2021-03-23] MEDS ORDERED: GoLYTELY 4,000 ml Bottle PO SCH (19:30)
[2021-03-24] MEDS: Cefepime 1 GM in Sodium Chloride 0.9% 100 ML IVPB SCH (03:13)
[2021-03-24 07:39] LABS: #Eosinphils 0.4 thou/uL (0.0-0.7); #Lymphocytes 0.9 thou/uL (1.20-3.40); #Monocytes 1.3 thou/uL (0.11-0.59); #Neutrophils 8.1 thou/uL (1.40-6.50); %Basophils 0.4 % (0.0-1.0); %Eosinophils 3.3 % (0.0-10.0); %Lymphocytes 8.6 % (21.0-51.0); %Monocytes 12.1 % (0.0-10.0); %Neutrophils 75.6 % (42.0-75.0); Hemoglobin 9.5 g/dL (14.0-18.0); Mean Corpuscular HGB CONC 32.7 g/dL (32.0-36.0); Platelet Count 258 thou/uL (130-400); RBC Distribution Width 15.9 % (11.5-14.5); Red Blood Cell (RBC) Count 2.79 mill/uL (4.70-6.10); White Blood Cell (WBC) Count 10.8 thou/uL (4.8-10.8)
[2021-03-24] MEDS: HEPARIN CATH SCH (07:40)
[2021-03-24] MEDS: PERITON DIALYSIS CATH SCH (07:40)
[2021-03-24 08:00] LABS: Anion Gap 17 mmol/L (10-20); BUN (Urea Nitrogen) 55 mg/dL (8.4-25.7); Calc. Creatinine Clearance 11 mL/min (70-130); Calcium 8.9 mg/dL (7.8-10.44); Carbon Dioxide 22 mmol/L (23-31); Chloride 95 mmol/L (98-107); Glucose 97 mg/dL (83-110); Potassium 3.1 mmol/L (3.5-5.1); Sodium 131 mmol/L (136-145)
[2021-03-24] MEDS: Pantoprazole 40 MG VIAL IVP SCH ×2 (09:38→22:11)
[2021-03-24] MEDS ORDERED: Epoetin (ESRD) 20,000 UNITS/ML SC SCH (09:45)
[2021-03-24] MEDS ORDERED: GoLYTELY 4,000 ml Bottle PO SCH (11:00)
[2021-03-24] MEDS ORDERED: Midodrine HCl 5 MG TAB PO SCH (11:30)
[2021-03-24] MEDS: Ondansetron ODT 4 MG TAB PO PRN ×2 (11:32→22:18)
[2021-03-24] MEDS ORDERED: EPOETIN ALFA-EPBX (ESRD) 4,000 UNIT/ML VIAL SC SCH (12:00)
[2021-03-24] MEDS ORDERED: Potassium Chloride 20 MEQ TAB PO SCH (13:00)
[2021-03-24] MEDS ORDERED: CEFEPIME IVPB PRN (13:59)
[2021-03-24 14:15] LABS: RBC Count-Automated (BF) 0 /cu.mm; WBC/Nucleated-Auto (BF) 49 uL
[2021-03-24 14:34] LABS: BF Color Colorless; Body Fluid Source Peritoneal Fluid; Clarity Clear (Clear); Tube # EDTA
[2021-03-24 14:37] LABS: Cell Count Non Hematic 15 %
[2021-03-24 14:38] LABS: BF Segmented Neutrophils 80 %; Eosinophils 5 %
[2021-03-24] MEDS: Midodrine HCl 5 MG TAB PO SCH ×3 (17:23→22:09)
[2021-03-24 17:42] LABS: Hemoglobin 9.4 g/dL (14.0-18.0)
[2021-03-24] MEDS: Acetaminophen/Codeine 30-300mg Tablet PO PRN (22:09)
[2021-03-25] MEDS: Ondansetron ODT 4 MG TAB PO PRN ×2 (03:34→12:43)
[2021-03-25] MEDS: PERITON DIALYSIS CATH SCH (06:45)
[2021-03-25] MEDS: HEPARIN CATH SCH (06:45)
[2021-03-25] MEDS ORDERED: GoLYTELY 4,000 ml Bottle PO SCH (09:00)
[2021-03-25] MEDS: Pantoprazole 40 MG VIAL IVP SCH ×2 (09:06→20:23)
[2021-03-25] MEDS: Midodrine HCl 5 MG TAB PO SCH ×3 (09:06→20:23)
[2021-03-25 09:10] LABS: #Eosinphils 0.3 thou/uL (0.0-0.7); #Lymphocytes 0.7 thou/uL (1.20-3.40); #Monocytes 1.4 thou/uL (0.11-0.59); #Neutrophils 9.1 thou/uL (1.40-6.50); %Basophils 0.3 % (0.0-1.0); %Eosinophils 2.5 % (0.0-10.0); %Monocytes 12.3 % (0.0-10.0); %Neutrophils 78.9 % (42.0-75.0); Hemoglobin 8.9 g/dL (14.0-18.0); Mean Corpuscular HGB CONC 31.1 g/dL (32.0-36.0); Mean Corpuscular Hemoglobin 31.7 pg (27.0-31.0); Mean Platelet Volume 7.8 fL (7.4-10.4); Platelet Count 249 thou/uL (130-400); Red Blood Cell (RBC) Count 2.81 mill/uL (4.70-6.10); White Blood Cell (WBC) Count 11.5 thou/uL (4.8-10.8)
[2021-03-25 09:37] LABS: Anion Gap 23 mmol/L (10-20); BUN (Urea Nitrogen) 60 mg/dL (8.4-25.7); Calc. Creatinine Clearance 11 mL/min (70-130); Calcium 8.5 mg/dL (7.8-10.44); Carbon Dioxide 23 mmol/L (23-31); Chloride 94 mmol/L (98-107); Glucose 119 mg/dL (83-110); Sodium 137 mmol/L (136-145)
[2021-03-25 09:55] LABS: Potassium 2.8 mmol/L (3.5-5.1)
[2021-03-25 10:03] LABS: Vancomycin, Random 18.9 ug/mL (See Comment)
[2021-03-25] MEDS ORDERED: Vancomycin HCl 500 MG in Sodium Chloride 0.9% 100 ML IVPB SCH (10:15)
[2021-03-25] MEDS ORDERED: Potassium Chloride 20 MEQ TAB PO SCH (11:15)
[2021-03-25] MEDS: Acetaminophen/Codeine 30-300mg Tablet PO PRN ×2 (12:42→22:15)
[2021-03-25 13:10] VITALS: BMI 24.7
[2021-03-25] MEDS: Calcium Acetate 667 MG CAP PO SCH (16:00)
[2021-03-25 17:04] LABS: Hemoglobin 9.2 g/dL (14.0-18.0)
[2021-03-25 17:20] LABS: Potassium 3.1 mmol/L (3.5-5.1)
[2021-03-25 17:53] LABS: Thyroid Stimulating Hormone 2.3547 uIU/mL (0.35-4.94)
[2021-03-25] MEDS: Atorvastatin Calcium 40 MG TAB PO SCH (20:23)
[2021-03-25] MEDS: Rifampin 300 MG CAP PO SCH (22:12)
[2021-03-26 05:19] LABS: #Eosinphils 0.3 thou/uL (0.0-0.7); #Lymphocytes 0.7 thou/uL (1.20-3.40); #Monocytes 1.7 thou/uL (0.11-0.59); %Basophils 0.3 % (0.0-1.0); %Eosinophils 2.1 % (0.0-10.0); %Lymphocytes 5.4 % (21.0-51.0); %Monocytes 12.7 % (0.0-10.0); %Neutrophils 79.5 % (42.0-75.0); Hemoglobin 9.2 g/dL (14.0-18.0); Mean Corpuscular HGB CONC 32.9 g/dL (32.0-36.0); Mean Corpuscular Hemoglobin 33.4 pg (27.0-31.0); Mean Platelet Volume 8.1 fL (7.4-10.4); Platelet Count 279 thou/uL (130-400); Red Blood Cell (RBC) Count 2.74 mill/uL (4.70-6.10); White Blood Cell (WBC) Count 13.8 thou/uL (4.8-10.8)
[2021-03-26 05:39] LABS: Anion Gap 22 mmol/L (10-20); BUN (Urea Nitrogen) 56 mg/dL (8.4-25.7); Calc. Creatinine Clearance 11 mL/min (70-130); Calcium 8.8 mg/dL (7.8-10.44); Carbon Dioxide 23 mmol/L (23-31); Chloride 96 mmol/L (98-107); Glucose 145 mg/dL (83-110); Potassium 3.2 mmol/L (3.5-5.1); Sodium 138 mmol/L (136-145)
[2021-03-26] MEDS: Midodrine HCl 5 MG TAB PO SCH ×3 (08:25→21:45)
[2021-03-26] MEDS: Ondansetron ODT 4 MG TAB PO PRN ×2 (08:31→17:13)
[2021-03-26] MEDS ORDERED: Cefepime 2 GM in Sodium Chloride 0.9% 100 ML IVPB SCH (09:00)
[2021-03-26] MEDS ORDERED: Morphine 2 MG/ML VIAL ONE (09:28)
[2021-03-26] MEDS ORDERED: Potassium Chloride 20 MEQ TAB PO SCH (09:30)
[2021-03-26] MEDS: Calcium Acetate 667 MG CAP PO SCH ×3 (09:47→19:30)
[2021-03-26] MEDS ORDERED: Midazolam HCl 2 mg/2 ml Vial ONE (09:53)
[2021-03-26] MEDS ORDERED: Ketamine 50 MG/ML (10ML VIAL) ONE (09:53)
[2021-03-26] MEDS ORDERED: PROPOFOL 200 MG/20 ML VIAL ONE (09:56)
[2021-03-26] MEDS ORDERED: PHENYLEPHRINE-NS 100 MCG/ML 10 ML SYRINGE ONE (09:56)
[2021-03-26] MEDS ORDERED: Ondansetron HCl/PF 4 MG/2 ML Vial IVP PRN (10:02)
[2021-03-26] MEDS ORDERED: Promethazine HCl 25 MG/ML VIAL IM PRN (10:02)
[2021-03-26] MEDS ORDERED: Promethazine HCl 25 MG/ML VIAL IVPB PRN (10:02)
[2021-03-26 11:53] LABS: Vancomycin, Random 20.9 ug/mL (See Comment)
[2021-03-26] MEDS: Rifampin 300 MG CAP PO SCH ×2 (12:25→23:29)
[2021-03-26] MEDS: Pantoprazole 40 MG VIAL IVP SCH ×2 (12:25→23:25)
[2021-03-26] MEDS ORDERED: Vancomycin HCl 500 MG in Sodium Chloride 0.9% 100 ML IVPB SCH (14:00)
[2021-03-26] MEDS: Polyethylene Glycol 3350 17 GM Packet PO SCH ×2 (15:22→23:25)
[2021-03-26 20:10] LABS: Anion Gap 24 mmol/L (10-20); BUN (Urea Nitrogen) 60 mg/dL (8.4-25.7); Calc. Creatinine Clearance 10 mL/min (70-130); Carbon Dioxide 22 mmol/L (23-31); Chloride 96 mmol/L (98-107); Glucose 141 mg/dL (83-110); Magnesium 2.6 mg/dL (1.6-2.6); Sodium 138 mmol/L (136-145)
[2021-03-26 20:44] LABS: CKMB 9.6 ng/mL (0-6.6)
[2021-03-26] MEDS ORDERED: Albumin 25% 25 GM/100 ML BOT IVPB SCH (21:15)
[2021-03-26] MEDS: Atorvastatin Calcium 40 MG TAB PO SCH (23:25)
[2021-03-27] MEDS ORDERED: Sodium Chloride 0.9% 500 ML IV SCH (01:30)
[2021-03-27 04:19] LABS: #Eosinphils 0.3 thou/uL (0.0-0.7); #Lymphocytes 1.1 thou/uL (1.20-3.40); #Monocytes 1.7 thou/uL (0.11-0.59); #Neutrophils 10.8 thou/uL (1.40-6.50); %Basophils 0.3 % (0.0-1.0); %Eosinophils 2.1 % (0.0-10.0); %Lymphocytes 7.5 % (21.0-51.0); %Monocytes 12.4 % (0.0-10.0); %Neutrophils 77.7 % (42.0-75.0); Mean Corpuscular HGB CONC 32.6 g/dL (32.0-36.0); Mean Corpuscular Hemoglobin 33.1 pg (27.0-31.0); Mean Platelet Volume 8.1 fL (7.4-10.4); Platelet Count 297 thou/uL (130-400); RBC Distribution Width 16.3 % (11.5-14.5); White Blood Cell (WBC) Count 13.9 thou/uL (4.8-10.8)
[2021-03-27 04:40] LABS: ALT (SGPT) 12 U/L (8-55); AST (SGOT) 23 U/L (5-34); Albumin 3.1 g/dL (3.4-4.8); Alkaline Phosphatase 181 U/L (40-110); Anion Gap 26 mmol/L (10-20); BUN (Urea Nitrogen) 63 mg/dL (8.4-25.7); Calc. Creatinine Clearance 9 mL/min (70-130); Calcium 9.1 mg/dL (7.8-10.44); Carbon Dioxide 20 mmol/L (23-31); Chloride 98 mmol/L (98-107); Globulin 1.9 g/dL (2.4-3.5); Glucose 125 mg/dL (83-110); Potassium 3.9 mmol/L (3.5-5.1); Sodium 140 mmol/L (136-145)
[2021-03-27] MEDS: Midodrine HCl 5 MG TAB PO SCH ×2 (08:28→15:47)
[2021-03-27] MEDS: Calcium Acetate 667 MG CAP PO SCH ×3 (08:28→17:42)
[2021-03-27] MEDS: Pantoprazole 40 MG VIAL IVP SCH (08:29)
[2021-03-27] MEDS: Polyethylene Glycol 3350 17 GM Packet PO SCH (08:29)
[2021-03-27] MEDS: Rifampin 300 MG CAP PO SCH ×2 (10:43→21:32)
[2021-03-27] MEDS: Cefepime 1 GM in Sodium Chloride 0.9% 100 ML IVPB SCH ×2 (10:43→21:31)
[2021-03-27] MEDS: Albumin 25% 25 GM/100 ML BOT IVPB SCH ×2 (12:46→17:23)
[2021-03-27 13:34] LABS: Vancomycin, Random 19.5 ug/mL (See Comment)
[2021-03-27] MEDS ORDERED: Vancomycin HCl 500 MG in Sodium Chloride 0.9% 100 ML IVPB SCH (14:00)
[2021-03-27] MEDS ORDERED: Midodrine HCl 5 MG TAB PO SCH (18:00)
[2021-03-27] MEDS: Atorvastatin Calcium 40 MG TAB PO SCH (21:31)
[2021-03-28] MEDS: Albumin 25% 25 GM/100 ML BOT IVPB SCH ×2 (00:50→06:08)
[2021-03-28 04:16] LABS: #Eosinphils 0.3 thou/uL (0.0-0.7); #Lymphocytes 0.9 thou/uL (1.20-3.40); #Monocytes 1.2 thou/uL (0.11-0.59); #Neutrophils 7.2 thou/uL (1.40-6.50); %Basophils 0.1 % (0.0-1.0); %Eosinophils 3.5 % (0.0-10.0); %Lymphocytes 9.4 % (21.0-51.0); %Monocytes 12.5 % (0.0-10.0); %Neutrophils 74.4 % (42.0-75.0); Mean Corpuscular HGB CONC 32.7 g/dL (32.0-36.0); Mean Corpuscular Hemoglobin 33.5 pg (27.0-31.0); Mean Platelet Volume 8.3 fL (7.4-10.4); Platelet Count 307 thou/uL (130-400); RBC Distribution Width 16.4 % (11.5-14.5); Red Blood Cell (RBC) Count 2.39 mill/uL (4.70-6.10); White Blood Cell (WBC) Count 9.7 thou/uL (4.8-10.8)
[2021-03-28 04:38] LABS: ALT (SGPT) 10 U/L (8-55); AST (SGOT) 18 U/L (5-34); Albumin 3.6 g/dL (3.4-4.8); Alkaline Phosphatase 162 U/L (40-110); Anion Gap 24 mmol/L (10-20); BUN (Urea Nitrogen) 52 mg/dL (8.4-25.7); Bilirubin, Total 0.9 mg/dL (0.2-1.2); Calc. Creatinine Clearance 10 mL/min (70-130); Calcium 9.5 mg/dL (7.8-10.44); Carbon Dioxide 21 mmol/L (23-31); Chloride 97 mmol/L (98-107); Globulin 1.8 g/dL (2.4-3.5); Glucose 170 mg/dL (83-110); Magnesium 2.5 mg/dL (1.6-2.6); Potassium 3.1 mmol/L (3.5-5.1); Protein, Total 5.4 g/dL (5.8-8.1); Sodium 139 mmol/L (136-145)
[2021-03-28] MEDS ORDERED: Sodium Chloride 0.9% 500 ML IVPB SCH (05:45)
[2021-03-28] MEDS ORDERED: Potassium Chloride 20 MEQ TAB PO SCH (08:15)
[2021-03-28] MEDS: Midodrine HCl 5 MG TAB PO SCH ×3 (08:45→16:24)
[2021-03-28] MEDS: Calcium Acetate 667 MG CAP PO SCH ×3 (08:46→16:24)
[2021-03-28] MEDS: Pantoprazole 40 MG VIAL IVP SCH (08:47)
[2021-03-28] MEDS: Aspirin Chewable 81 MG TAB PO SCH (08:47)
[2021-03-28 08:48] LABS: Vancomycin, Random 20.1 ug/mL (See Comment)
[2021-03-28] MEDS: Rifampin 300 MG CAP PO SCH ×2 (08:48→21:32)
[2021-03-28] MEDS: Polyethylene Glycol 3350 17 GM Packet PO SCH (09:57)
[2021-03-28] MEDS: Cefepime 1 GM in Sodium Chloride 0.9% 100 ML IVPB SCH ×2 (11:47→21:32)
[2021-03-28] MEDS: Morphine 2 MG/ML VIAL SLOW IVP PRN ×2 (19:21→21:46)
[2021-03-28] MEDS: Atorvastatin Calcium 40 MG TAB PO SCH (19:27)
[2021-03-29] MEDS ORDERED: Lorazepam 2 MG/ML VIAL SLOW IVP SCH (01:15)
[2021-03-29 06:13] LABS: #Eosinphils 0.3 thou/uL (0.0-0.7); #Lymphocytes 1.2 thou/uL (1.20-3.40); #Monocytes 1.4 thou/uL (0.11-0.59); #Neutrophils 9.4 thou/uL (1.40-6.50); %Basophils 0.3 % (0.0-1.0); %Eosinophils 2.8 % (0.0-10.0); %Lymphocytes 9.5 % (21.0-51.0); %Monocytes 11.4 % (0.0-10.0); Hemoglobin 8.4 g/dL (14.0-18.0); Mean Corpuscular HGB CONC 32.5 g/dL (32.0-36.0); Mean Corpuscular Hemoglobin 33.4 pg (27.0-31.0); Mean Platelet Volume 8.1 fL (7.4-10.4); Platelet Count 343 thou/uL (130-400); RBC Distribution Width 16.7 % (11.5-14.5); Red Blood Cell (RBC) Count 2.52 mill/uL (4.70-6.10); White Blood Cell (WBC) Count 12.3 thou/uL (4.8-10.8)
[2021-03-29 06:28] LABS: ALT (SGPT) 8 U/L (8-55); AST (SGOT) 17 U/L (5-34); Albumin 3.2 g/dL (3.4-4.8); Alkaline Phosphatase 163 U/L (40-110); Anion Gap 22 mmol/L (10-20); BUN (Urea Nitrogen) 50 mg/dL (8.4-25.7); Bilirubin, Total 0.7 mg/dL (0.2-1.2); Calc. Creatinine Clearance 9 mL/min (70-130); Carbon Dioxide 20 mmol/L (23-31); Chloride 100 mmol/L (98-107); Globulin 1.6 g/dL (2.4-3.5); Glucose 126 mg/dL (83-110); Magnesium 2.5 mg/dL (1.6-2.6); Potassium 3.6 mmol/L (3.5-5.1); Protein, Total 4.8 g/dL (5.8-8.1); Sodium 138 mmol/L (136-145)
[2021-03-29 09:15] VITALS: BP 101/64; TEMP 98.1
[2021-03-29] MEDS: Aspirin Chewable 81 MG TAB PO SCH (13:27)
[2021-03-29] MEDS: Calcium Acetate 667 MG CAP PO SCH (13:27)
[2021-03-29] MEDS: Midodrine HCl 5 MG TAB PO SCH (13:27)
[2021-03-29] MEDS: Pantoprazole 40 MG VIAL IVP SCH (13:28)
[2021-03-29] MEDS: Polyethylene Glycol 3350 17 GM Packet PO SCH (13:28)
[2021-03-29] MEDS: Rifampin 300 MG CAP PO SCH (13:29)
[2021-03-29] MEDS: Cefepime 1 GM in Sodium Chloride 0.9% 100 ML IVPB SCH (15:31)
== END 2021-03-29 16:42 | disposition home health service (06) | DRG 919 ==
LOC: ERS 12:46 → ERHOLD 17:18 → SURG A 03-22 16:02 → IMCU/EMU 03-26 23:01 → T4-B 03-28 21:09
PROVIDERS: ADMIT Student in an Organized Health Care Education/Training Program; ATTEND Internal Medicine
PROC: 3E1M39Z Irrigation of Peritoneal Cavity using Dialysate, Percutaneous Approach (ICD-10-PCS; 2021-03-21)
PROC: 0DJD8ZZ Inspection of Lower Intestinal Tract, Via Natural or Artificial Opening Endoscopic (ICD-10-PCS; principal; 2021-03-26)
PROC: 0DCP7ZZ Extirpation of Matter from Rectum, Via Natural or Artificial Opening (ICD-10-PCS; 2021-03-26)
PROC: 4B02XTZ Measurement of Cardiac Defibrillator, External Approach (ICD-10-PCS; 2021-03-26)
DX: T85.71XA Infection and inflammatory reaction due to peritoneal dialysis catheter, initial encounter (principal); J18.9 Pneumonia, unspecified organism; N18.6 End stage renal disease; K65.8 Other peritonitis; I50.23 Acute on chronic systolic (congestive) heart failure; C25.9 Malignant neoplasm of pancreas, unspecified; I12.0 Hypertensive chronic kidney disease with stage 5 chronic kidney disease or end stage renal disease; K86.2 Cyst of pancreas; C25.2 Malignant neoplasm of tail of pancreas; K52.0 Gastroenteritis and colitis due to radiation; I13.2 Hypertensive heart and chronic kidney disease with heart failure and with stage 5 chronic kidney disease, or end stage renal disease; K62.6 Ulcer of anus and rectum; K55.9 Vascular disorder of intestine, unspecified; J90 Pleural effusion, not elsewhere classified; F05 Delirium due to known physiological condition; J93.9 Pneumothorax, unspecified; Z66 Do not resuscitate; Z20.822 Contact with and (suspected) exposure to COVID-19; N28.1 Cyst of kidney, acquired; E11.22 Type 2 diabetes mellitus with diabetic chronic kidney disease; I25.10 Atherosclerotic heart disease of native coronary artery without angina pectoris; D63.1 Anemia in chronic kidney disease; E11.42 Type 2 diabetes mellitus with diabetic polyneuropathy; E78.5 Hyperlipidemia, unspecified; K80.20 Calculus of gallbladder without cholecystitis without obstruction; Y84.2 Radiological procedure and radiotherapy as the cause of abnormal reaction of the patient, or of later complication, without mention of misadventure at the time of the procedure; I48.91 Unspecified atrial fibrillation; K21.9 Gastro-esophageal reflux disease without esophagitis; M19.90 Unspecified osteoarthritis, unspecified site; Y83.8 Other surgical procedures as the cause of abnormal reaction of the patient, or of later complication, without mention of misadventure at the time of the procedure; K56.41 Fecal impaction; I08.3 Combined rheumatic disorders of mitral, aortic and tricuspid valves; D47.2 Monoclonal gammopathy; I95.89 Other hypotension; E87.6 Hypokalemia; I49.3 Ventricular premature depolarization; Z99.2 Dependence on renal dialysis; Z95.1 Presence of aortocoronary bypass graft; Z95.810 Presence of automatic (implantable) cardiac defibrillator; Z88.8 Allergy status to other drugs, medicaments and biological substances; Z79.899 Other long term (current) drug therapy; Z79.84 Long term (current) use of oral hypoglycemic drugs; Z79.82 Long term (current) use of aspirin; Z85.46 Personal history of malignant neoplasm of prostate
CPT/HCPCS: 36415; 36416; 70450; 71045; 71250; 74018; 74177; 80048; 80053; 80202; 80307; 82140; 82274; 82553; 82607; 82746; 83036; 83605; 83690; 83735; 83880; 84145; 84153; 84443; 84484; 85025; 85060; 86301; 86304; 86706; 86850; 86900; 86901; 87040; 87070; 87205; 87340; 89051; 90945; 93005; 93010; 93306; 96365; 96366; 96367; C9113; G0257; J0692; J1644; J2060; J2250; J2270; J2704; J3370; J3490; J7030; J7050; P9045; P9047; Q0162; Q5105; Q9967; U0002